=== PATIENT | female | born 1945 | race Caucasian/White ===

== ENCOUNTER → 2016-08-08 | Outpatient (CLI) | payer MEDICARE, OTHER ==
[~2016-08-08] MED LIST: AMLODIPINE BESYL5 MG PO; AMOXICILLIN500 MG PO; AUGMENTIN 500 M1 TAB PO; BACTRIM; BACTRIM 400 MG-1 TAB PO; CARAFATE1 G1 PO; CARVEDILOL3.125 MG PO; CEFTRIAXONE1 GM IJ; CELLCEPT500 MG PO; CIPRO500 MG PO; CLINDAMYCIN300 MG PO; COZAAR50 M1 PO; COZAAR50 MG PO; DEXILANT60 M1 PO; DEXTROSE IV; DICYCLOMINE HCL20 MG PO; DICYCLOMINE10 MG PO; DICYCLOMINE20 MG PO; DOXYCYCLINE HY100 M5 PO; DOXYCYCLINE100 M3 PO; FLORASTOR; FLORASTOR 33 MG1 CAP PO; FLOVENT 220 M220 MCG INH; FLOVENT INHALER; FLUTICASON0.05 MG/AC NAS; FOLIC ACID; FOLIC ACID1 MG PO; Flovent 220 M220 MCG INH; IMDUR SA30 MG PO; KCL; KEFLEX500 MG PO; LACTULOSE10 GM/15 M PO; LISINOPRIL10 MG PO; LISINOPRIL5 MG PO; MAG; MAGIMIN80 MG; METOCLOPRAMIDE H5 M1 PO; METOPROLOL SUCC25 M2 PO; NEURONTIN100 MG PO; NITROSTAT0.4 MG SL; NS; NS 0.9% IV; OMNICEF250 MG/5 M PO; OXYCONTIN20 MG PO; PANTOPRAZOLE SO40 MG PO; PHENERGAN25 M1 PO; POTASSIUM25 MEQ; PROAIR HFA8.5 GM INH; PROBIOTIC FORMU1 CAP PO; PROGRAF; PROGRAF1 MG PO; PROTONIX20 MG PO; PROTONIX40 MG PO; ROXICODONE5 MG PO; SEPTRA DS 800 M1 TAB PO; SODIUM CHLORIDE IV; THE MEDICINE S400 IU PO; VITAMIN D32000 IU PO; Wellbutrin Sr100 MG PO; ZOFRAN ODT4 MG SL
== END | disposition home or self-care (01) ==
LOC: MRI 08-01 11:00
DX: I67.82 Cerebral ischemia (principal); M79.631 Pain in right forearm; R41.3 Other amnesia; H53.8 Other visual disturbances; Z91.81 History of falling

== ENCOUNTER 2016-08-11 20:02 | Emergency (ER) | payer MEDICARE, OTHER ==
[~2016-08-11] VITALS: Ht 165.1 cm; Wt 90.7 kg
[2016-08-11] MEDS ORDERED: AMOXICILLIN250 MG PO (20:27)
[2016-08-11] MEDS ORDERED: COLCRYS0.6 M1 PO (22:10)
[2016-08-11] MEDS ORDERED: ULTRAM50 MG PO (22:44)
== END 2016-08-11 22:47 | disposition home or self-care (01) ==
LOC: ED 20:02
DX: M10.9 Gout, unspecified (principal); E11.9 Type 2 diabetes mellitus without complications; N18.4 Chronic kidney disease, stage 4 (severe); Z88.1 Allergy status to other antibiotic agents; Z79.899 Other long term (current) drug therapy

== ENCOUNTER 2016-11-27 06:15 | Inpatient (IN) | payer MEDICARE, OTHER ==
[~2016-11-27] VITALS: Ht 162.5 cm; Wt 90.7 kg
[2016-11-27] VITALS (8 sets, daily range): BP systolic 106–142; BP diastolic 53–71
--- NOTE | ~2016-11-27 | PR ---
[place], [place] PROGRESS NOTE NAME: CLAUDE MCCANN UNIT #: [id number] ROOM: 403 DOCTOR: NOEL AVILES MD BIRTHDATE: [birth year] DOS: SUBJECTIVE: The patient is doing well. She does not have any complaints today. The tooth that was loose has fallen off and she has a lot of drainage from the abscess. OBJECTIVE: VITAL SIGNS: Graphic trend shows blood pressure 136/59, pulse is 67, respirations 18, temperature 98.5. LUNGS: Clear. HEART: Regular. ABDOMEN: Obese, soft and nontender. EXTREMITIES: Without any edema. LABORATORY DATA: Blood cultures drawn on the 9 at 7:23 shows gram-negative bacilli. The one drawn at 7:31 shows no bacterial growth. Urine culture shows a contaminated specimen, which will need to be repeated. ASSESSMENT AND PLAN: 1. Fever with elevated white cell count and sepsis with gram-negative bacilli in the blood. The source of infection could still be the MediPort versus urinary tract infection. Again, a repeat urine culture will be ordered. The patient states that no culture was drawn from her MediPort, which will be done this morning. We will discontinue the continuous IV hydration that she is having. ____ was ordered by ID, which is continued. 2. Chronic kidney disease with GFR of 12, stage 5 renal failure. Renal is following the patient. Avoid nephrotoxic medications. 3. Benign hypertension, controlled. 4. History of liver transplant, on immunosuppressants, levels to be ordered. 5. Dental abscess. Dr. Mcneill did see the patient, advised the patient to see her dentist as an outpatient. The patient will need to stay until we figure out where the infection is coming from, so the patient to stay until the repeat cultures come back. [place], [place] PROGRESS NOTE NAME: CLAUDE MCCANN UNIT #: [id number] ROOM: 403 DOCTOR: NOEL AVILES MD BIRTHDATE: [birth year] NOEL AVILES MD CM:PNTRANS [id number] NOEL AVILES MD 11/29/16 1118 interface
--- NOTE | ~2016-11-27 | WRIGHTHP ---
[place], [place] PATIENT HISTORY AND PHYSICAL EXAM NAME: CLAUDE MCCANN [facility] #: [id number] UNIT #: [id number] ROOM: 403 DOCTOR: NOEL AVILES MD BIRTHDATE: [birth year] DOS: 11/27/2016 HISTORY OF PRESENT ILLNESS: The patient is very well known to us. She had blood work done routine on the . White cell count was normal. She came in to the hospital this morning as she started having fever and chills yesterday evening. She also complained of extreme weakness, but denied having any abdominal pain, nausea, any emesis, any urinary or bowel symptoms. She has had infected left upper molar and was supposed to have them removed soon. She does complain of some discomfort in that area. PAST MEDICAL HISTORY: Significant for: 1. Chronic kidney disease stage IV. 2. History of liver transplant. 3. Benign hypertension. 4. History of line sepsis. 5. Diabetes mellitus, non-insulin dependent. 6. Chronic back pain. MEDICATIONS: She is currently on DuoNeb, ProAir, saline once every other day, amlodipine 5 daily, Wellbutrin 100 mg twice a day, vitamin D 2000 units daily, folic acid 1 mg daily, metoprolol 25 mg daily, oxycodone 5 mg p.o. q.i.d., Protonix 40 mg twice a day, Prograf 1 mg twice a day, ____ Sunday, Sunday and Sunday 1 tablet. SOCIAL HISTORY: Nonsmoker, does not use any alcohol. PHYSICAL EXAMINATION: GENERAL: She is awake and alert and oriented. VITAL SIGNS: Graphic trend shows blood pressure of 142/70, pulse of 86, respirations 14, afebrile, temperature of 103 at home before she came in, here in the hospital the T-max is 102.0. LUNGS: Diminished breath sounds, clear. HEART: Regular. ABDOMEN: Obese, soft, nontender. EXTREMITIES: Without any edema. HEENT: Examination of the tooth reveals that the left upper molar is barely attached and she has some minimal tenderness in the ____ with evidence of early dental abscess. LABORATORY DATA: White cell count is 19,000, hemoglobin 10.0, hematocrit 33.8, platelets 234. Protime is normal. Sodium 135, potassium 4.0, chloride 100, bicarbonate 25, BUN 32, creatinine 3.39. ASSESSMENT AND PLAN: 1. Fever with elevated white cell count, possibly sepsis. Blood cultures and urine cultures have been sent. IV Rocephin started. Infectious Disease consultation has been obtained. 2. Chronic renal failure. IV fluids will be ordered and readjust medications. Dr. Rivera has been consulted. 3. Infected tooth with a possibility of dental abscess. Dr. Mcneill has [place], [place] PATIENT HISTORY AND PHYSICAL EXAM NAME: CLAUDE MCCANN UNIT #: [id number] ROOM: 403 DOCTOR: NOEL AVILES MD BIRTHDATE: [birth year] been consulted. 4. Elevated troponin. The patient does not have any complaints of chest pains or shortness of breath. She had cardiac workup at [facility] 2 weeks ago which was negative and this most likely is renal in origin. NOEL AVILES MD CM:HISPHYS:PATIENT HISTORY AND PHYSICAL EXAMINATION [id number] NOEL AVILES MD 11/27/16 1638 interface
--- NOTE | ~2016-11-27 | PR ---
[place], [place] PROGRESS NOTE NAME: CLAUDE MCCANN UNIT #: [id number] ROOM: 403 DOCTOR: NOEL AVILES MD BIRTHDATE: [birth year] DOS: SUBJECTIVE: The patient has a lot of URI symptoms, but otherwise feels good. OBJECTIVE: VITAL SIGNS: Graphic trend shows a pressure of 134/67, pulse is 65, respirations 18 and temperature 97.9. LUNGS: Clear. HEART: Regular. ABDOMEN: Obese, soft. EXTREMITIES: Without any edema. LABORATORY DATA: Blood cultures done on the 10. Both were peripheral venous cultures, they show no bacterial growth. Blood culture from the MediPort is still pending. ASSESSMENT AND PLAN: 1. Sepsis with elevated white cell count and positive blood cultures of pseudomonas. This could have originated from the urine. Urine culture initially showed contaminated specimen, which was repeated on the , which showed no bacterial growth. By then, the patient had already received multiple days of antibiotics. 2. Line sepsis is still being ruled out. MediPort cultures are pending. If that comes back negative, we will discharge her to home. If it is positive, then need to consider a MediPort removal and Dr. Vega was already placed on consult. 3. Acute kidney disease. Routine labs were done this morning shows a BUN of 29, creatinine 2.92, which has some slight improvement. 4. Upper respiratory infection symptoms. Claritin will be ordered today. NOEL AVILES MD CM:PNTRANS [phone] NOEL AVILES MD 11/30/162101 interface
--- NOTE | ~2016-11-27 | CON ---
[place], [place] REPORT OF CONSULTATION NAME: CLAUDE MCCANN UNIT #: [id number] ROOM: 403 DOCTOR: DOMINGO KUMAR DMD BIRTHDATE: [birth year] DOS: This is a consultation for dental evaluation. The patient was admitted for an elevated white count and fever following a fall. The patient states she is currently in end-stage renal failure with an elevated white count and fever of unknown origin. On exam, there is no extraoral swelling noted, normal range of motion, no dyspnea nor dysphagia. Intraoral exam shows extensive dry mouth with maxillary and mandibular partial edentulism, mucositis. The patient currently has a maxillary Cu-Mariluz partial denture over splinted implants, #13 and #14. 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 Buccal space abscess in noted. The mandibular dentition is in disrepair, but no active swelling or infection was noted. The patient was scheduled with Dr. Gore on November 29 for a full mouth extraction; however, the appointment was canceled due to her current hospitalization. Given the location and infected status of implants #13 and #14, it is possible that this is the source of her current distress. I recommend control with IV antibiotic therapy and immediate referral to Dr. Gore for completion of treatment. DOMINGO KUMAR DMD CM:CONSTR:REPORT OF CONSULTATION 1916 11/28/16 0524 interface
--- NOTE | ~2016-11-27 | PR ---
[place], [place] PROGRESS NOTE NAME: CLAUDE MCCANN UNIT #: [id number] ROOM: 403 DOCTOR: NOEL AVILES MD BIRTHDATE: [birth year] DOS: SUBJECTIVE: The patient has not had any new complaints. Denies any chest pains, palpitations or shortness of breath. PHYSICAL EXAMINATION: VITAL SIGNS: Blood pressure is 157/72, pulse is 62, respirations 18 and temperature 98.5. LUNGS: Diminished breath sounds. Clear. HEART: Regular. ABDOMEN: Obese, soft, nontender. EXTREMITIES: Without any edema. LABORATORY DATA: FK506 level was 1.5. Urine culture shows no bacterial growth. [facility], which is preliminary. ASSESSMENT AND PLAN: 1. Sepsis, possibly from UTI and some Pseudomonas. The patient is placed on IV cefepime and she is being discharged to home today. IV antibiotic arrangements have been made by case management. 2. Chronic kidney disease. She will continue to receive IV fluids at home. 3. Benign hypertension, controlled. 4. History of liver transplant, the FK506 level is slightly on the low side. I will let the transplant clinic to readjust the med dose. NOEL AVILES MD CM:PNTRANS [phone] NOEL AVILES MD 12/01/162124 interface
--- NOTE | ~2016-11-27 | DS ---
[place], [place] DISCHARGE SUMMARY NAME: CLAUDE MCCANN UNIT #: [id number] ROOM: 403 DOCTOR: NOEL AVILES MD BIRTHDATE: [birth year] DOS: 12/01/2016 DIAGNOSES: 1. Sepsis with pseudomonas bacteremia. 2. The source of infection, most likely urinary. MediPort cultures negative, so line sepsis ruled out. 3. Chronic kidney disease. 4. History of liver transplant. 5. Benign hypertension. 6. Chronic back pain. 7. Diabetes mellitus, non-insulin dependent. MEDICATIONS: She is on are the same. Only new prescription given was IV cefepime 1 g b.i.d. for 14 days. HOSPITAL COURSE: The patient is very well known to us, comes in with complaints of fever, chills and extreme weakness. The patient's white cell count was normal initially, as she was tachypneic and slightly tachycardic and diagnosed with sepsis and was admitted. After admission, blood cultures and urine cultures were performed. The patient was placed on IV Rocephin. Consultation with ID, Nephrology and Cardiology were obtained. Troponin levels have been elevated. This is most likely renal problems that she has had. No further recommendations made by Cardiology, Dr. Rivera from Nephrology did see the patient, advised continuation of her home medications and IV fluids. ID did re-adjust her antibiotic regimen. The urine culture has come back negative. It shows a contaminated specimen, so repeat culture was sent and this has come back showing no bacterial growth. Blood culture grew Pseudomonas only in 1 bottle. MediPort cultures were negative, so the plan is to continue giving the patient IV antibiotics through the MediPort for about 14 days. The patient is overall stable and is not having any new problems at the time of discharge. The Prograf level is slightly on the low side Transplant Clinic adjusts her medicines. [place], [place] DISCHARGE SUMMARY NAME: CLAUDE MCCANN UNIT #: [id number] ROOM: 403 DOCTOR: NOEL AVILES MD BIRTHDATE: [birth year] NOEL AVILES MD CM:DISCHARG [id number] NOEL AVILES MD 12/01/16 1357 interface
--- NOTE | ~2016-11-27 | PR ---
[place], [place] PROGRESS NOTE NAME: CLAUDE MCCANN UNIT #: [id number] ROOM: 403 DOCTOR: NOEL AVILES MD BIRTHDATE: [birth year] DOS: SUBJECTIVE: The patient is not having any new complaints. I appreciate all consultants' input. OBJECTIVE: VITAL SIGNS: Graphic trend shows blood pressure 120/57, pulse of 59, respirations 20, temperature 98.3, T-max was yesterday afternoon at 101.1. LUNGS: Diminished breath sounds. HEART: Regular. ABDOMEN: Obese. EXTREMITIES: Without any edema. MediPort site looks intact. ASSESSMENT AND PLAN: 1. Sepsis with gram-negative bacilli, most likely not line sepsis, most likely urinary tract infection with bacteremia, do not have the urine culture back yet. The patient will continue on IV Zosyn. 2. Dental abscess, appreciate Dr. Mcneill's input. The patient was encouraged to see her dentist as an outpatient. 3. Elevated troponin, most likely renal, most likely from underlying kidney failure. The patient does not have any evidence of myocardial infarction and a recent cardiac workup was normal. 4. Chronic kidney disease. The patient is on slow IV hydration. Renal is following. We will have case manager specialist to arrange for home IV antibiotics. Not ready to be discharged yet. NOEL AVILES MD CM:PNTRANS [id number] NOEL AVILES MD 11/28/16 1120 interface
[~2016-11-27 06:15] MED LIST changes: +AMOXICILLIN250 MG PO; +COLCRYS0.6 M1 PO; +ULTRAM50 MG PO
[2016-11-27 07:11] LABS: HEMATOCRIT 33.8 % (37.0-47.0); HEMOGLOBIN 10.8 g/dl (12.0-16.0); MEAN CELL VOLUME 91.1 fl (81.0-99.0); MEAN CORPUSCULAR HGB 29.1 pg (27.0-31.0); MEAN PLATELET VOLUME 10.8 fl (9.6-12.3); PLATELET COUNT AUTOMATED 234 10*3/uL (130-400); RED BLOOD COUNT 3.71 10*6/uL (4.10-5.10); RED CELL DISTRI WIDTH 14.9 % (0-14.5)
[2016-11-27 07:17] LABS: INTERNATIONAL NORM RATIO 1.1 (2.0-3.5)
[2016-11-27 07:28] LABS: ALBUMIN 3.2 gm/dl (3.1-4.5); CREATININE 3.39 mg/dL (0.55-1.02); MAGNESIUM 1.9 mg/dL (1.5-2.1); TOTAL PROTEIN 7.1 gm/dL (6.4-8.2)
[2016-11-27 07:30] LABS: TROPONIN I 0.875 ng/ml (<0.045)
[2016-11-27 07:31] LABS: PLATELET SUFFICIENCY NORMAL (NORMAL); TOTAL CELLS COUNTED 100 #CELLS
[2016-11-27 08:09] LABS: BILIRUBIN NEGATIVE (NEGATIVE); BLOOD 2+ (NEGATIVE); CLARITY SL CLOUDY (CLEAR); COLOR YELLOW (YELLOW); GLUCOSE NEGATIVE (NEGATIVE); KETONE NEGATIVE (NEGATIVE); LEUKO ESTERASE TRACE (NEGATIVE); NITRITE NEGATIVE (NEGATIVE); SPECIFIC GRAVITY 1.015 (1.005-1.030)
[2016-11-27 08:19] LABS: BACTERIA TRACE; EPITHELIAL CELLS 16-20; WBC 16-20 wbc/hpf (0-5)
--- NOTE | 2016-11-27 09:59 | NUR ---
A 71, admitted to , under the services of NOEL Browning MD with a diagnosis of UTI. Chief complaint is UTI, FEVER, WEAKNESS, FALLS. Patient arrived via stretcher from ER. Monitor applied. Initial assessment completed. Vital signs taken and recorded. NOEL BROWNING MD notified of admission to the unit. Orders received. See assessment for past medical history, medications and allergies. Patient and/or family oriented to unit. [address] visitation policy reviewed. Clothing/patient valuable form completed. NATALIO STROUD
--- NOTE | 2016-11-27 10:42 | NUR ---
CONSULT CALLED TO DR JONES'S OFFICE
[2016-11-27] MEDS ORDERED: FLONASE ALLERG9.9 ML NAS (11:02)
[2016-11-27] MEDS ORDERED: COLCRYS0.6 M1 PO (11:04)
[2016-11-27] MEDS ORDERED: NITROGLYCERIN0.4 MG SL (11:06)
--- NOTE | 2016-11-27 11:07 | NUR ---
Critical troponin received from lab of 0.911 and primary care nurse Dora Cantu notified of result.
[2016-11-27] MEDS ORDERED: SEPTDS PO (11:08)
--- NOTE | 2016-11-27 11:11 | NUR ---
PATIENT MEDICATED WITH PO TYLENOL FOR FEVER OF 102
--- NOTE | 2016-11-27 11:21 | NUR ---
CONSULT CALLED TO SARAHI AT [facility]
--- NOTE | 2016-11-27 12:10 | NUR ---
PATIENT TYLENOL EFFECTIVE FOR FEVER
--- NOTE | 2016-11-27 14:01 | NUR ---
PHYSICAL THERAPY Patient evaluated on 4, full evaluation to follow. Continue with PT as per plan of care with fall, acutely ill and new 02 precautions. May require SNF, pemding progress. If home, may require home health Rn and PT and assist. PAtient is moderate complexity via chart review, tests and evaluation: 27562. Thank you for this referral. Michela Gonzáles,PT
--- NOTE | 2016-11-27 14:04 | NUR ---
PATIENT MEDICATED WITH PO ZOFRAN FOR VOMITING
--- NOTE | 2016-11-27 14:33 | NUR ---
Occupational Therapy evaluation completed on 4 with full eval to follow. Precautions include fall risk,new O2, IV UE,low complexity level 76749. Recomemnd OT per POC and home w/ family as able with possible home health OT/PT as indicated. Thank you for this referral. Sarai Louis OTR/l
--- NOTE | 2016-11-27 14:47 | NUR ---
NOTIFIED DR AVILES ABOUT ELEVATED TROPONIN
--- NOTE | 2016-11-27 16:14 | NUR ---
CONSULT CALLED TO DR MCCALLUM'S OFFICE. WAS TOLD DR GUERRERO WAS COVERING. ALSO CALLED DR KUMAR'S OFFICE. SHANE ADVISED SHE WOULD GIVE THE MESSAGE TO DR KUMAR.
--- NOTE | 2016-11-27 17:42 | NUR ---
NOTIFIED FROM LAB THAT PATIENT HAS AN ELEVATED TROPONIN. THE LEVEL IS COMING DOWN. DR AVILES ADVISED WITH THE LAST LEVEL THAT SHE IS NOT CONCERNED FOR IT BEING CARDIAC RELATED THAT SHE BELIEVES IT IS FROM THE CKD THAT IF IT DOES NOT GO UP ANY HIGHER THAT I DO NOT NEED TO CALL AGAIN.
--- NOTE | 2016-11-27 19:30 | NUR ---
ASSUMED CARE OF PT AT THIS TIME, RESPS EASY AND NONLABORED WITH NO S/S OF DISTRESS, CALL LIGHT WITH IN REACH, VISITING WITH VISITOR
[2016-11-28] VITALS: BP 121/57
--- NOTE | 2016-11-28 04:33 | NUR ---
CALL PLACED TO R/T POSITIVE BLOOD CULTURES, NEW ORDERS TO START LEVAQUIN QOD, PT HAS ALLERGY TO LEVAQUIN, CALL PLACED TO DR AVILES AND MESSAGE LEFT R/T ALLERGY
[2016-11-28 05:57] LABS: BASO % 0.3 % (0.0-1.0); CREATININE 3.64 mg/dL (0.55-1.02); EOS # 0.1 10*3/uL (0.0-0.4); EOS % 0.8 % (1.0-4.0); HEMATOCRIT 29.2 % (37.0-47.0); HEMOGLOBIN 9.4 g/dl (12.0-16.0); LYMPH # 1.2 10*3/uL (1.3-4.4); LYMPH % 13.4 % (27.0-41.0); MEAN CELL VOLUME 91.8 fl (81.0-99.0); MEAN CORPUSCULAR HGB 29.6 pg (27.0-31.0); MEAN CORPUSCULAR HGB CONC 32.2 g/dl (33.0-37.0); MEAN PLATELET VOLUME 11.4 fl (9.6-12.3); MONO # 0.5 10*3/uL (0.1-1.0); MONO % 5.8 % (3.0-9.0); NEUT # 6.9 10*3/uL (2.3-7.9); NEUT % 79.2 % (47.0-73.0); POTASSIUM 4.1 mmol/L (3.5-5.1); RED BLOOD COUNT 3.18 10*6/uL (4.10-5.10); RED CELL DISTRI WIDTH 15.4 % (0-14.5); WHITE BLOOD COUNT 8.7 10*3/uL (4.8-10.8)
[2016-11-28 05:59] LABS: PLATELET COUNT AUTOMATED 148 10*3/uL (130-400)
--- NOTE | 2016-11-28 06:23 | NUR ---
AWAITING RETURN CALL FROM DR AVILES AT THIS TIME
--- NOTE | 2016-11-28 07:30 | NUR ---
PATIENT RESTING IN BED NO CO AT THIS TIME SEE SHIFT ASSESSMENT
[2016-11-28 08:00] VITALS: BP 144/86
--- NOTE | 2016-11-28 08:00 | NUR ---
Director Of Events in to talk to patient. Patient states lives at HOME with HER . There are 22 steps in the home. Physician: DR AVILES Pharmacy: [facility] IN [place] FOR IV MEDS Home health services: [facility] Patient's level of ADLs: MINIMAL ASSIST Patient has working utilities: YES DME: NONE Follow-up physician's appointment after d/c: PREFERS TO MAKE HER OWN APPT Does patient want to access PORTAL?: Discharge plan HOME WITH IV ATB. RITO TENA
--- NOTE | 2016-11-28 08:00 | NUR ---
PER DR AVILES, PT WILL NEED HOME IV ATB. WILL ARRANGE WHEN CULTURE SENSITIVITY IS BACK.
--- NOTE | 2016-11-28 09:03 | NUR ---
PHYSICAL THERAPY Patient presented to therapy with report of having a little back pain today but otherwise feeling much better. Patient is on 2 liters of spO2. Patient performed ther ex as per flowsheet with NITROCELLULOSE OPERATOR X 1 with O2 tank and IV pole, for 100'x1. Patient was left in seated position with call light within reach. Patient was 1:1 with this QA TEST ANALYST for 20 minutes. Khoi Bailey QA TEST ANALYST
--- NOTE | 2016-11-28 09:28 | NUR ---
PATIENT RESTING IN BED CALL LIGHT IN REACH SEE SHIFT ASSESSMNE
--- NOTE | 2016-11-28 11:02 | NUR ---
PATIENT RESTING IN BED HAS NO CO AT THIS TIME CALL LIGHT IN REACH SEE SHIFT ASSESSMENT
[2016-11-28 12:00] VITALS: BP 142/84; BP 143/75
--- NOTE | 2016-11-28 12:33 | NUR ---
PATIENT SEEN 1:1 15 MINUTES THIS DATE.PATIENT REPORTS HAVING A HEADACHE TODAY AND DECLINED STANDING ACTIVITY. PATIENT REPORTS NURSING AWARE. PATIENT WILLING TO COMPLETED BUE AROM STR IN SUPINE ALL PLANES 2 SETS X 10 REPS WITH MOD VERBAL CUES TECH/FORM. PATIENT EDUCATED IMPORTANCE OF THERAPY FOR OVERALL INCREASE INDEPENDENCE WITH FUNCTIONAL TASKS. PATIENT CALL LIGHT WITHIN IN REACH. MESSI WILLIS/Caitlin
[2016-11-28 16:00] VITALS: BP 134/53; BP 140/72
[2016-11-28 17:25] LABS: BILIRUBIN NEGATIVE (NEGATIVE); BLOOD NEGATIVE (NEGATIVE); CLARITY CLEAR (CLEAR); COLOR YELLOW (YELLOW); GLUCOSE NEGATIVE (NEGATIVE); KETONE NEGATIVE (NEGATIVE); LEUKO ESTERASE TRACE (NEGATIVE); NITRITE NEGATIVE (NEGATIVE); PH 7.5 (5.0-9.0); UROBILINOGEN 0.2 E.U./dl (0.2-1.0)
[2016-11-28 17:42] LABS: BACTERIA 4+
--- NOTE | 2016-11-28 19:30 | NUR ---
ASSUMED CARE OF PT AT THIS TIME, RESPS EASY AND NONLABORED WITH NO S/S OF DISTRESS CALL LIGHT WITH IN REACH
[2016-11-28 20:00] VITALS: BP 133/58
[2016-11-29] VITALS: BP 136/59
--- NOTE | 2016-11-29 01:49 | NUR ---
RESTING IN BED WITH EYES CLOSED, NO S/S OF DISTRESS CALL LIGHT WITH IN REACH
--- NOTE | 2016-11-29 06:00 | NUR ---
BEFORE ADMINSTERING THIS NURSES FIRST DOSE OF IV ANTIBIOTIC MEROPENUM, THIS NURSE CHECKED THE IV COMPATABILTY REPORT WITH LACTATED RINGERS AND IS FOUND TO BE INCOMPATABLE WITH MEROPENUM. CALL PLACED TO [facility] FOR VERIFICATION, AND WAS TOLD BY [facility] THAT MEROPENUM AND LACTATED RINGERS ARE INCOMPATABLE. INSTRUCTED PT THAT A NEW IV LINE WOULD NEED TO BE STARTED R/T INCOMPATABILITY OF MEDICATIONS AND PT REFUSED AT THIS TIME, STATING THAT SHE IS A HARD STICK AND WOULD LIKE TO SPEAK TO DR. AVILES ABOUT USING MEDIPORT BEFORE ATTEMPTING ANOTHER IV SITE.
[2016-11-29 08:00] VITALS: BP 155/39
--- NOTE | 2016-11-29 08:02 | NUR ---
PT SITTING UP EATING BREAKFAST. NO DISTRESS NOTED. NO VOICED C/O. DR AVILES IN TO SEE PT. WILL MONITOR
--- NOTE | 2016-11-29 08:18 | NUR ---
OCCUPATIONAL THERAPY CO-SIGN I approve of the Occupational Therapy notes written above. JAMMIE FERNÁNDEZ OTR/Caitlin
--- NOTE | 2016-11-29 08:49 | NUR ---
DR AVILES NOTIFIED OF BLOOD CULTURES
--- NOTE | 2016-11-29 10:03 | NUR ---
PT SHAKING IN BED, CHILING. STATES SHES NAUSEATED AND NEEDS TYLENOL . DR AVILES CALLED AND NOTIFIED . NEW ORDERS RECIEVED
--- NOTE | 2016-11-29 10:34 | NUR ---
PT REQUESTED AND GIVEN TYLENOL FOR C/O. ACHES, CHILLING / WILL MONITOR
--- NOTE | 2016-11-29 11:12 | NUR ---
PHYSICAL THERAPY Pt was not feeling good today. Pt having spasms in low back. Pt was able to complete some gentle rom with legs x 10 reps on each. Pt attempted to lay down supine with head down and reports that does not relieve pain. pt then sit-std sbax1. Pt ambulated to door 10 feet x 1 sbax1 just wanted to stand as that felt better. Pt nurse came in at this point to address issues with pain. Pt left with nurse in reach of call light sitting on the edge of the bed. Pt was seen for 20 minutes this date. Pt will cont per plan of care. Leonela Navarrete [id number]
[2016-11-29 12:00] VITALS: BP 110/71
--- NOTE | 2016-11-29 13:00 | NUR ---
IV started right forearm with #24 angiocath after 1 attempts. The IV site was prepped with Chloraprep. Heparin lock attached. Sterile dressing applied. Patient tolerated precedure well. Procedure performed according to [facility] policy & procedure. JULIAN MEAD
[2016-11-29 13:45] LABS: CREATININE 3.27 mg/dL (0.55-1.02); PHOSPHOROUS 2.3 mg/dL (2.5-4.9)
[2016-11-29 13:46] LABS: ALBUMIN 2.6 gm/dl (3.1-4.5)
[2016-11-29 16:00] VITALS: BP 130/70
[2016-11-29 20:00] VITALS: BP 137/61
--- NOTE | 2016-11-29 22:23 | NUR ---
PT REQUESTED MEDICATOIN FOR POST NASAL DRIP. CALLED. SEE MAR.
--- NOTE | 2016-11-29 23:38 | NUR ---
PT REQUESTED MEDICATION FOR NASAL DRIP. BENADRYL WAS GIVEN.
[2016-11-30] VITALS: BP 152/68
--- NOTE | 2016-11-30 00:15 | NUR ---
MEDICATION WAS EFFECTIVE. PT SLEEPING.
--- NOTE | 2016-11-30 01:12 | NUR ---
24 HR chart check completed.
[2016-11-30 07:49] LABS: BASO % 0.2 % (0.0-1.0); EOS # 0.3 10*3/uL (0.0-0.4); EOS % 4.2 % (1.0-4.0); HEMATOCRIT 26.8 % (37.0-47.0); HEMOGLOBIN 8.5 g/dl (12.0-16.0); LYMPH # 1.5 10*3/uL (1.3-4.4); LYMPH % 24.9 % (27.0-41.0); MEAN CELL VOLUME 91.5 fl (81.0-99.0); MEAN CORPUSCULAR HGB CONC 31.7 g/dl (33.0-37.0); MEAN PLATELET VOLUME 12.1 fl (9.6-12.3); MONO # 0.7 10*3/uL (0.1-1.0); MONO % 11.5 % (3.0-9.0); NEUT # 3.6 10*3/uL (2.3-7.9); NEUT % 58.5 % (47.0-73.0); PLATELET COUNT AUTOMATED 147 10*3/uL (130-400); RED BLOOD COUNT 2.93 10*6/uL (4.10-5.10); RED CELL DISTRI WIDTH 15.6 % (0-14.5); WHITE BLOOD COUNT 6.2 10*3/uL (4.8-10.8)
[2016-11-30 08:00] VITALS: BP 145/64
[2016-11-30 08:08] LABS: ALBUMIN 2.6 gm/dl (3.1-4.5); CREATININE 2.92 mg/dL (0.55-1.02); POTASSIUM 4.2 mmol/L (3.5-5.1); TOTAL PROTEIN 6.3 gm/dL (6.4-8.2)
--- NOTE | 2016-11-30 08:20 | NUR ---
PHYSICAL THERAPY Patient presented to therapy with report of feeling sick but hoping to go home soon. Patient agrees to therapy this AM. Patient performed supine to sitting at EOB transfer with Supervision. Patient performed sit to stand transfer with with Supervision. Patient ambulated without assistive device and Supervision for 120'x 1. Patient performed ther ex to LEs in seated position x 20 reps each in all planes of mvmt. Patient became sick and had to stop therapy due to stomach issues. Patient transferred back to bed Independently and was left with call light within reach. Nursing notified. Patient was 1:1 with this ENVIRONMENTAL ENGINEERING ASSISTANT for 25 minutes total. Khoi Bailey ENVIRONMENTAL ENGINEERING ASSISTANT
--- NOTE | 2016-11-30 08:35 | NUR ---
PT RESTING IN BED, NO DISTRESS NOTED. WILL MONITOR
--- NOTE | 2016-11-30 10:14 | NUR ---
Occupational THerapy treatment offered this date. Patient reports that she is nauseated and having diarrhea and is not interested in therapy at this date. OT will attempt at a later date. Sarai Louis OTR/L
[2016-11-30 12:00] VITALS: BP 134/67
[2016-11-30 16:00] VITALS: BP 144/63
--- NOTE | 2016-11-30 17:23 | NUR ---
PT RESTING IN BED, NO DISTRESS NOTED, WILL MONITOR
--- NOTE | 2016-11-30 19:52 | NUR ---
Medicated with Benadryl po prn for post nasal drip. Will monitor effectiveness. Call light within reach.
[2016-11-30 20:00] VITALS: BP 138/61
--- NOTE | 2016-11-30 21:00 | NUR ---
Patient resting quietly in bed with eyes closed. Benadryl effective. Will continue to monitor. Call light within reach.
[2016-12-01] VITALS: BP 163/87
--- NOTE | 2016-12-01 00:42 | NUR ---
24 HR chart check completed.
--- NOTE | 2016-12-01 07:50 | NUR ---
DR AVILES HERE TO SEE PT AT THIS TIME TO DISCUSS DISCHARGE PLANS.
[2016-12-01 08:00] VITALS: BP 157/72
--- NOTE | 2016-12-01 09:21 | NUR ---
PT TO GO HOME TODAY ON IV CEFEPIME 1GM IV BID X14 DAYS. SPOKE TO ELIZA AT [facility] [place] SCRIPT AND PAPERWORK FAXED. AWARE OF DC TODAY AND MED TO START AT HOME AT 6PM TONIGHT. DR AVILES ALSO ORDERED TO REUME HYDRATION PRIOR TO HOSPITALIZATION. JOAN AT [facility] SAYS THEY CAN BE THERE AT 6PM TONIGHT. PAPERWORK AND ORDER FAXED TO [facility]. PT AND NURSE AWARE PT CAN GO HOME THIS AM AND HOME TEAM WILL BE THERE AROUND 6PM TONIGHT. [facility] [phone] FAX [phone]
--- NOTE | 2016-12-01 11:50 | NUR ---
Discharge instructions reviewed with patient/family. Patient receptive and verbalizes understanding. Follow-up care arranged. Written instructions given to patient/family. Pt transported to [facility] via wheelchair, accomapnied by staff. NATALIO RING
--- NOTE | 2016-12-04 07:48 | NUR ---
PHYSICAL THERAPY CO-SIGN I approve of the Phyical Therapy notes written above. LORAINE HUDDLESTON PT
== END 2016-12-01 11:50 | disposition home health service (06) | DRG 871 ==
LOC: ED 06:15 → 4E 08:54 → EDHOLD 08:54 → 4E 09:00
PROVIDERS: Emergency Medicine Emergency Medical Services; Family Medicine; Student in an Organized Health Care Education/Training Program; ADMIT Internal Medicine
DX: A41.52 Sepsis due to Pseudomonas (principal); N17.0 Acute kidney failure with tubular necrosis; S26.90XA Unspecified injury of heart, unspecified with or without hemopericardium, initial encounter; N18.6 End stage renal disease; N39.0 Urinary tract infection, site not specified; Z94.4 Liver transplant status; I12.0 Hypertensive chronic kidney disease with stage 5 chronic kidney disease or end stage renal disease; E11.22 Type 2 diabetes mellitus with diabetic chronic kidney disease; J06.9 Acute upper respiratory infection, unspecified; E83.39 Other disorders of phosphorus metabolism; E83.42 Hypomagnesemia; D64.9 Anemia, unspecified; M54.9 Dorsalgia, unspecified; K12.30 Oral mucositis (ulcerative), unspecified; K08.409 Partial loss of teeth, unspecified cause, unspecified class; G89.29 Other chronic pain; K74.60 Unspecified cirrhosis of liver; E86.9 Volume depletion, unspecified; K04.7 Periapical abscess without sinus; R31.9 Hematuria, unspecified; M10.9 Gout, unspecified; Z90.49 Acquired absence of other specified parts of digestive tract; Z87.440 Personal history of urinary (tract) infections; Z88.1 Allergy status to other antibiotic agents; Z83.3 Family history of diabetes mellitus; Z82.49 Family history of ischemic heart disease and other diseases of the circulatory system; Z80.9 Family history of malignant neoplasm, unspecified; Z79.899 Other long term (current) drug therapy; W18.39XA Other fall on same level, initial encounter; Y93.89 Activity, other specified; Y92.89 Other specified places as the place of occurrence of the external cause; Y99.8 Other external cause status

== ENCOUNTER → 2016-12-27 | Outpatient (CLI) | payer MEDICARE, OTHER ==
[~2016-12-27] MED LIST changes: +FLONASE ALLERG9.9 ML NAS; +NITROGLYCERIN0.4 MG SL; +SEPTDS PO
--- NOTE | 2016-12-27 14:35 | NUR ---
PT HERE FOR BLOOD CULTURE DRAW FORM [facility]. PT CAME WITH MEDIPORT ACCESSED FORM HOME. PROMPT BLOOD RETURN. LAB HERE WITH CULTURE TUBES. BLOOD SPECIMEN GIVEN TO COOK RESTAURANT. [facility] FLUSHED PER POLICY. PT TOLERATED WELL. BIJAL MONTAGUE RN
== END ==
LOC: LAB 13:25
DX: N39.0 Urinary tract infection, site not specified (principal); E79.0 Hyperuricemia without signs of inflammatory arthritis and tophaceous disease; A41.59 Other Gram-negative sepsis

== ENCOUNTER 2017-05-06 16:46 | Emergency (ER) | payer MEDICARE, BC ==
[~2017-05-06] VITALS: Ht 165.1 cm; Wt 90.7 kg
[2017-05-06 17:23] LABS: BASO % 0.3 % (0.0-1.0); EOS # 0.2 10*3/uL (0.0-0.4); EOS % 2.4 % (1.0-4.0); HEMATOCRIT 31.2 % (37.0-47.0); HEMOGLOBIN 9.9 g/dl (12.0-16.0); LYMPH # 2.6 10*3/uL (1.3-4.4); LYMPH % 36.5 % (27.0-41.0); MEAN CORPUSCULAR HGB 29.8 pg (27.0-31.0); MEAN CORPUSCULAR HGB CONC 31.7 g/dl (33.0-37.0); MEAN PLATELET VOLUME 10.7 fl (9.6-12.3); MONO # 0.5 10*3/uL (0.1-1.0); MONO % 7.7 % (3.0-9.0); NEUT # 3.7 10*3/uL (2.3-7.9); PLATELET COUNT AUTOMATED 284 10*3/uL (130-400); RED BLOOD COUNT 3.32 10*6/uL (4.10-5.10); RED CELL DISTRI WIDTH 14.4 % (0-14.5)
[2017-05-06 17:32] LABS: ACT PARTIAL THROMBO TIME 34.1 SECONDS (20.8-31.5)
[2017-05-06 17:39] LABS: ALBUMIN 3.2 gm/dl (3.1-4.5); ALKALINE PHOSPHATASE 227 U/L (45-117); BUN 33 mg/dl (7-24); CHLORIDE 99 mmol/L (98-107); CREATININE 3.64 mg/dL (0.55-1.02); PHOSPHOROUS 3.8 mg/dL (2.5-4.9); SGOT/AST 25 IU/L (3-35); SGPT/ALT 23 U/L (12-78); SODIUM 137 mmol/L (136-145); TOTAL PROTEIN 6.7 gm/dL (6.4-8.2)
[2017-05-06 17:46] LABS: TROPONIN I < 0.015 ng/ml (<0.045)
[2017-05-06 18:02] LABS: BILIRUBIN NEGATIVE (NEGATIVE); BLOOD NEGATIVE (NEGATIVE); CLARITY CLEAR (CLEAR); COLOR YELLOW (YELLOW); GLUCOSE NEGATIVE (NEGATIVE); KETONE NEGATIVE (NEGATIVE); LEUKO ESTERASE NEGATIVE (NEGATIVE); NITRITE NEGATIVE (NEGATIVE); PH 8.5 (5.0-9.0); UROBILINOGEN 0.2 E.U./dl (0.2-1.0)
[2017-05-06 18:14] LABS: EPITHELIAL CELLS 0-2; RBC 0-2 rbc/hpf (0-2); WBC 0-2 wbc/hpf (0-5)
[2017-05-06] MEDS ORDERED: ZOFRAN ODT4 MG SL (18:48)
== END 2017-05-06 18:53 | disposition home or self-care (01) ==
LOC: ED 16:46
PROVIDERS: Emergency Medicine
DX: R19.7 Diarrhea, unspecified (principal); R53.1 Weakness; R10.32 Left lower quadrant pain; E11.22 Type 2 diabetes mellitus with diabetic chronic kidney disease; N18.4 Chronic kidney disease, stage 4 (severe); M10.9 Gout, unspecified; J45.909 Unspecified asthma, uncomplicated; Z94.4 Liver transplant status; Z88.1 Allergy status to other antibiotic agents; Z79.899 Other long term (current) drug therapy

== ENCOUNTER 2017-06-27 09:30 | Inpatient (IN) | payer MEDICARE, BC ==
[~2017-06-27] VITALS: Ht 160 cm; Wt 91.0 kg
--- NOTE | ~2017-06-27 | WRIGHTHP ---
[place], [place] PATIENT HISTORY AND PHYSICAL EXAM NAME: CLAUDE MCCANN [facility] #: [id number] UNIT #: [id number] ROOM: 532 DOCTOR: LENORE MAYA MD BIRTHDATE: [birth year] DOS: 06/27/2017 HISTORY OF PRESENT ILLNESS: A 72-year-old patient with a past medical history of: 1. Major depression, recurrent. 2. Liver transplant in 2004. 3. Ileojejunal bypass for weight loss in with reversal in 2005. 4. History of kidney stones. 5. Ventral abdominal hernia, wears a binder. 6. Breast cancer with mastectomy and chemotherapy more than 5 years back. 7. Chronic diarrhea with colitis. The patient presented to the emergency department at [facility] for diarrhea for about 10 days and she was unable to get her diarrhea medications through her insurance. The patient felt very weak and dizzy and was evaluated in the emergency department where she also complained of chest pains. There were some complaints of shortness of breath. There were complaints of burning in her urine. The patient thought she got dehydrated because of her diarrhea. The patient was evaluated in the emergency department, following this cardiac enzymes have been checked and negative so far. The patient is starting to feel better. REVIEW OF SYSTEMS: LUNGS: Some shortness of breath. GASTROINTESTINAL: Diarrhea for 10 days. She also has history of chronic diarrhea. CARDIOVASCULAR: Recurrent chest pains. FAMILY HISTORY: Noncontributory. SOCIAL HISTORY: Denies smoking cigarettes, alcohol and drug abuse. PHYSICAL EXAMINATION: GENERAL: Alert, oriented times 3. Generalized weakness. HEENT AND NECK: Extraocular movements are intact. Sclerae are anicteric. Oral mucosa is moist and clean. No obvious facial weakness. Neck is supple without any lymphadenopathy. No thyromegaly. No JVD. No carotid arterial bruits. LUNGS: Clear to auscultation. No wheezing. No rhonchi. CARDIOVASCULAR SYSTEM: Heart rate is regular in rate and rhythm. S1 and S2 normally audible. No significant murmur or any other abnormal cardiac sounds. ABDOMEN: Soft, nontender. No obvious organomegaly. Bowel sounds are present. The patient has ventral abdominal hernia and abdominal binder. EXTREMITIES: Without significant cyanosis or edema. Warm to touch. CENTRAL NERVOUS SYSTEM: Alert and oriented x 3. Cranial nerves II-XII are intact. Speech is normal. The patient is able to move all extremities. Normal muscle strength. Deep tendon reflexes are equal on both sides. Plantars were downgoing. LABORATORY DATA: Negative cardiac enzymes so far. D-dimer is elevated at 1.12. VQ scan results are pending. Hemoglobin 8.8. Creatinine elevated to 3.2. [place], [place] PATIENT HISTORY [facility]YS[id number] UN[facility] #: [id number] ROOM: [facility] DOCTOR: LENORE MAYA MD BIRTHDATE: [birth year] IMPRESSION: 1. The patient has history of chronic kidney disease with elevated creatinine and persistent diarrhea for 10 days. I will hydrate her slowly with normal saline and follow her serum electrolytes. 2. Chest pains. Cardiology consulted. The patient on a quality assurance monitor chassis. Cardiac enzymes have been negative. 3. Acute over chronic diarrhea, improved. The patient being hydrated with normal saline. 4. The patient has history of liver failure and liver transplant, continued on her antirejection medication. She takes tacrolimus which is Prograf. 5. Benign essential hypertension. The patient on amlodipine. Blood pressures are treated and controlled. 6. Diabetes mellitus type 2. Blood sugars to be monitored and treated. The patient to be kept on no concentrated sweet diet 7. Chronic kidney disease stage 4. 8. The patient is being ruled out for pulmonary embolism with a VQ scan. Her kidneys cannot tolerate iodine dye load. LENORE MAYA MD CM:HISPHYS:PATIENT HISTORY AND PHYSICAL EXAMINATION [id number] LENORE MAYA MD 06/28/17 1541 interface
--- NOTE | ~2017-06-27 | PR ---
[place], [place] PROGRESS NOTE NAME: CLAUDE MCCANN [facility] #: [id number] UNIT #: [id number] ROOM: 532 DOCTOR: LENORE MAYA MD BIRTHDATE: [birth year] DOS: 06/29/2017 SUBJECTIVE: The patient is improving. OBJECTIVE: VITAL SIGNS: Blood pressure 140/68, heart rate of 56 beats per minute, breathing normally, afebrile. GENERAL APPEARANCE: The patient is alert and oriented x 3, in no visible distress, except for generalized weakness. HEENT AND NECK: Exam within normal limits. CARDIOVASCULAR SYSTEM: Heart rate is regular in rate and rhythm. S1 and S2 normally audible. LUNGS: Clear to auscultation. ABDOMEN: Soft, nontender. No obvious organomegaly. Bowel sounds are present. EXTREMITIES: Without significant cyanosis or edema. IMPRESSION: 1. The patient with chronic kidney disease stage 4 with acute over chronic kidney failure from dehydration and diarrhea, starting to improve with hydration with normal saline. The patient's diarrhea has improved and kidney function is also improving. Her creatinine has improved to 3.15, but she is still not at her baseline, so I will continue the hydration. 2. No signs of pulmonary embolism. V/Q scan was low probability and her cardiac enzymes were negative. The patient was evaluated by Cardiology and not recommended any further workup. 3. Chronic diarrhea from bariatric surgery, which is chronic. 4. Type 2 diabetes mellitus. Blood sugars are well controlled. 5. Benign essential hypertension, treated with amlodipine. Blood pressure is being monitored and treated and staying slightly on the higher side. LENORE MAYA MD CM:PNTRANS 08 [phone] LENORE MAYA MD 06/29/172158 interface
--- NOTE | ~2017-06-27 | PR ---
[place], [place] PROGRESS NOTE NAME: CLAUDE MCCANN [facility] #: [id number] UNIT #: [id number] ROOM: 532 DOCTOR: NOEL AVILES MD BIRTHDATE: [birth year] DOS: 06/30/2017 SUBJECTIVE: The patient is feeling good. Her diarrhea has almost completely resolved. OBJECTIVE: VITAL SIGNS: Graphic trend shows a pressure 154/78, pulse of 55, respirations 18, temperature 98.3. LUNGS: Clear. HEART: Regular. ABDOMEN: Obese, soft, nontender. EXTREMITIES: Without any edema. ASSESSMENT AND PLAN: 1. The patient who presents with diarrhea, which is chronic with intermittent worsening. The patient was advised to try Asacol, but unfortunately the insurance would not approve it. She ended up in the hospital with diarrhea, which is uncontrollable. She was, after admission, placed on Lomotil and intravenous fluids and seems to have calmed it down. Her kidney functions are stable. The plan is to discharge her to home today. 2. Chronic renal failure, stage 4, stable without much change. She will continue intravenous fluids at home. NOEL AVILES MD CM:PNTRANS [phone] NOEL AVILES MD 06/30/17 0825 interface
--- NOTE | ~2017-06-27 | DS ---
[place], [place] DISCHARGE SUMMARY NAME: CLAUDE MCCANN [facility] #: [id number] UNIT #: [id number] ROOM: 532 DOCTOR: NOEL AVILES MD BIRTHDATE: [birth year] DOS: 06/30/2017 DIAGNOSES: 1. Chronic renal failure, stage V with interval worsening of kidney functions from acute renal failure, from continued diarrhea and volume loss. 2. Chronic diarrhea with interval worsening. 3. History of liver transplant. 4. History of diabetes mellitus. 5. History of chronic back pain. MEDICATIONS: That she is currently on are Asacol 800 t.i.d., Prograf 1 mg b.i.d., folic acid 1 mg daily, oxycodone 5 q.i.d. p.r.n., metoprolol 50 daily, IV fluids with D5 and water 2000 mL every other day, ProAir HFA 2 puffs q.i.d. p.r.n., Protonix 40 b.i.d., amlodipine 5 daily, lactulose 15 mL p.r.n. for constipation, Wellbutrin 100 mg twice a day, Flonase 2 sprays each nostril daily, nitroglycerin p.r.n., Zofran 4 mg p.r.n., Advair 100 one puff twice a day, allopurinol 100 daily. HOSPITAL COURSE: The patient is 72 years old, very well known to us, comes in with complaints of diarrhea. She has had chronic diarrhea, but it has worsened recently. Unfortunately, a prescription of Asacol given as an outpatient was not able to be felt because insurance refused. Because of uncontrolled diarrhea, the patient finally decided to come into the Emergency Room. She did have some minimal worsening of her kidney functions. The patient was placed on IV fluids, Lomotil. Please refer to Dr. Springer's dictation for further details. The patient apparently did have some shortness of breath and chest pain. A cardiac evaluation was also obtained. Dr. Jaime did not feel this was cardiac in nature. A V/Q scan was done, which was negative. This morning, the patient is feeling good and is not having any complaints. The plan is to discharge her to home today. Follow up as an outpatient. [place], [place] DISCHARGE SUMMARY NAME: CLAUDE MCCANN UNIT #: [id number] ROOM: [facility] DOCTOR: NOEL AVILES MD BIRTHDATE: [birth year] NOEL AVILES MD CM:DANA [phone] NOEL AVILES MD 06/30/17 0845 interface
[2017-06-27 09:30] VITALS: BP 170/65
[2017-06-27 09:51] LABS: BASO % 0.3 % (0.0-1.0); EOS # 0.2 10*3/uL (0.0-0.4); EOS % 2.3 % (1.0-4.0); HEMATOCRIT 27.7 % (37.0-47.0); HEMOGLOBIN 8.8 g/dl (12.0-16.0); LYMPH # 2.1 10*3/uL (1.3-4.4); LYMPH % 26.7 % (27.0-41.0); MEAN CELL VOLUME 92.6 fl (81.0-99.0); MEAN CORPUSCULAR HGB 29.4 pg (27.0-31.0); MEAN CORPUSCULAR HGB CONC 31.8 g/dl (33.0-37.0); MEAN PLATELET VOLUME 10.9 fl (9.6-12.3); MONO # 0.6 10*3/uL (0.1-1.0); MONO % 7.4 % (3.0-9.0); NEUT # 4.9 10*3/uL (2.3-7.9); NEUT % 62.9 % (47.0-73.0); PLATELET COUNT AUTOMATED 233 10*3/uL (130-400); RED BLOOD COUNT 2.99 10*6/uL (4.10-5.10); RED CELL DISTRI WIDTH 14.1 % (0-14.5); WHITE BLOOD COUNT 7.8 10*3/uL (4.8-10.8)
[2017-06-27 10:00] LABS: ACT PARTIAL THROMBO TIME 29.3 SECONDS (20.8-31.5)
[2017-06-27 10:09] LABS: ALBUMIN 3.1 gm/dl (3.1-4.5); ALKALINE PHOSPHATASE 228 U/L (45-117); BUN 24 mg/dl (7-24); CHLORIDE 104 mmol/L (98-107); CREATININE 3.14 mg/dL (0.55-1.02); POTASSIUM 3.7 mmol/L (3.5-5.1); SGOT/AST 27 IU/L (3-35); SGPT/ALT 26 U/L (12-78); SODIUM 140 mmol/L (136-145); TOTAL PROTEIN 6.9 gm/dL (6.4-8.2)
[2017-06-27 10:11] LABS: TROPONIN I < 0.015 ng/ml (<0.045)
[2017-06-27 10:26] LABS: BILIRUBIN NEGATIVE (NEGATIVE); BLOOD TRACE-INTACT (NEGATIVE); CLARITY CLEAR (CLEAR); COLOR YELLOW (YELLOW); GLUCOSE NEGATIVE (NEGATIVE); KETONE NEGATIVE (NEGATIVE); LEUKO ESTERASE NEGATIVE (NEGATIVE); NITRITE NEGATIVE (NEGATIVE); SPECIFIC GRAVITY <= 1.005 (1.005-1.030); UROBILINOGEN 0.2 E.U./dl (0.2-1.0)
[2017-06-27 10:34] LABS: EPITHELIAL CELLS 0-2
[2017-06-27 10:59] VITALS: BP 170/65
[2017-06-27 12:00] VITALS: BP 160/88
[2017-06-27 16:00] VITALS: BP 167/74
[2017-06-27 20:00] VITALS: BP 150/78
[2017-06-28] VITALS: BP 151/67
[2017-06-28 08:00] VITALS: BP 174/76
[2017-06-28 12:00] VITALS: BP 155/54
[2017-06-28 16:00] VITALS: BP 157/66
[2017-06-28 20:00] VITALS: BP 148/63
[2017-06-29] VITALS: BP 152/57
[2017-06-29 06:19] LABS: BASO % 0.3 % (0.0-1.0); EOS # 0.5 10*3/uL (0.0-0.4); EOS % 5.5 % (1.0-4.0); HEMATOCRIT 28.1 % (37.0-47.0); HEMOGLOBIN 8.7 g/dl (12.0-16.0); LYMPH # 3.5 10*3/uL (1.3-4.4); LYMPH % 37.2 % (27.0-41.0); MEAN CELL VOLUME 94.9 fl (81.0-99.0); MEAN CORPUSCULAR HGB 29.4 pg (27.0-31.0); MEAN PLATELET VOLUME 11.3 fl (9.6-12.3); MONO # 0.6 10*3/uL (0.1-1.0); MONO % 6.4 % (3.0-9.0); NEUT # 4.7 10*3/uL (2.3-7.9); NEUT % 50.3 % (47.0-73.0); PLATELET COUNT AUTOMATED 269 10*3/uL (130-400); RED BLOOD COUNT 2.96 10*6/uL (4.10-5.10); RED CELL DISTRI WIDTH 14.3 % (0-14.5); WHITE BLOOD COUNT 9.3 10*3/uL (4.8-10.8)
[2017-06-29 06:51] LABS: CREATININE 3.15 mg/dL (0.55-1.02); POTASSIUM 4.1 mmol/L (3.5-5.1)
[2017-06-29 09:25] VITALS: BP 140/68
[2017-06-29 12:00] VITALS: BP 158/76
[2017-06-29 16:00] VITALS: BP 166/75
[2017-06-29] MEDS ORDERED: ADV 100/50 INH (16:58)
[2017-06-29] MEDS ORDERED: ALLOPURINOL100 MG PO (16:58)
[2017-06-29 20:00] VITALS: BP 160/90
[2017-06-30] VITALS: BP 154/78
[2017-06-30] MEDS ORDERED: ASACOL HD800 M1 PO (06:42)
[2017-06-30 07:40] LABS: CREATININE 3.3 mg/dL (0.55-1.02); POTASSIUM 4.5 mmol/L (3.5-5.1)
[2017-06-30 08:00] VITALS: BP 155/72
== END 2017-06-30 09:40 | disposition home or self-care (01) | DRG 683 ==
LOC: ED 09:30 → 5E 10:36 → EDHOLD 10:36 → 5E 11:15
PROVIDERS: Emergency Medicine; Internal Medicine
DX: N17.9 Acute kidney failure, unspecified (principal); I12.0 Hypertensive chronic kidney disease with stage 5 chronic kidney disease or end stage renal disease; D89.9 Disorder involving the immune mechanism, unspecified; E11.22 Type 2 diabetes mellitus with diabetic chronic kidney disease; Z94.4 Liver transplant status; F33.9 Major depressive disorder, recurrent, unspecified; D63.8 Anemia in other chronic diseases classified elsewhere; M94.0 Chondrocostal junction syndrome [Tietze]; N18.5 Chronic kidney disease, stage 5; E86.0 Dehydration; K52.9 Noninfective gastroenteritis and colitis, unspecified; M10.9 Gout, unspecified; K74.60 Unspecified cirrhosis of liver; Z88.1 Allergy status to other antibiotic agents; Z88.8 Allergy status to other drugs, medicaments and biological substances; Z79.899 Other long term (current) drug therapy; Z87.440 Personal history of urinary (tract) infections; Z90.49 Acquired absence of other specified parts of digestive tract; Z90.12 Acquired absence of left breast and nipple; Z83.3 Family history of diabetes mellitus; Z82.49 Family history of ischemic heart disease and other diseases of the circulatory system; Z80.9 Family history of malignant neoplasm, unspecified; Z87.442 Personal history of urinary calculi; Z85.3 Personal history of malignant neoplasm of breast

== ENCOUNTER 2017-08-10 05:09 | Inpatient (IN) | payer MEDICARE, BC ==
[2017-08-10] VITALS (9 sets, daily range): BP systolic 121–169; BP diastolic 52–99
[~2017-08-10] VITALS: Ht 165.1 cm; Wt 91.7 kg
--- NOTE | ~2017-08-10 | PR ---
[place], [place] PROGRESS NOTE NAME: CLAUDE MCCANN UNIT #: [id number] ROOM: 521 DOCTOR: KASSIDY SCOTT,DONNA BIRTHDATE: [birth year] DOS: 08/11/2017 I had a fhss-[id number] encounter for this patient and agree with the assessment plan made by Yuki Riojas, nurse practitioner and made the necessary changes in the progress note. Tarah Yi MD CM:PNTRANS [phone] DONNA YI MD 09/04/17 0152 interface
--- NOTE | ~2017-08-10 | PR ---
[place], [place] PROGRESS NOTE NAME: CLAUDE MCCANN [facility] #: [id number] UNIT #: [id number] ROOM: 521 DOCTOR: NOEL AVILES MD BIRTHDATE: [birth year] DOS: 08/12/2017 SUBJECTIVE: The patient complains of burning on micturition, does not have any fever or chills. PHYSICAL EXAMINATION: GENERAL: She is awake and alert and oriented. VITAL SIGNS: Blood pressure is 150/53, pulse of 65, respirations 18, temperature 97.8. LUNGS: Diminished breath sounds. No wheezes, rales or rhonchi heard. HEART: Regular. ABDOMEN: Obese, soft, nontender. EXTREMITIES: Without any edema. ASSESSMENT AND PLAN: 1. Urine culture shows 25,000 colonies, most likely not responsible for the dysuria, most likely from renal atrophy. We will add Premarin cream for local application. 2. Sepsis with bacteremia, on IV antibiotics. Patient is awaiting repeat blood cultures, may require MediPort removal after completion of antibiotics if the blood cultures continued to be positive. NOEL AVILES MD CM:PNTRANS [phone] NOEL AVILES MD 08/24/17 0923 interface
--- NOTE | ~2017-08-10 | PR ---
[place], [place] PROGRESS NOTE [facility] [id number] UNIT #: [id number] ROOM: 521 DOCTOR: KT LLAMAS MD BIRTHDATE: [birth year] DOS: 08/11/2017 SUBJECTIVE: The patient was seen and examined. She is awake and alert. She is sitting in bed on room air. She denies shortness of breath, nausea or vomiting. Her appetite is fair. She states she is feeling a little bit better. PHYSICAL EXAMINATION: VITAL SIGNS: Showed temperature 98.2, pulse 61, respiration 18 and blood pressure 117/57. HEENT: Shows no JVD. LUNGS: Clear. No wheeze. HEART: S1, S2. No rub. ABDOMEN: Soft, nontender. There is no organomegaly. EXTREMITIES: Showed no edema. SKIN: Showed no rash. LABORATORY DATA: Hemoglobin 8.4, white count of 4.8, platelets of 170. BUN 35, creatinine 4.0, sodium 141, potassium 4.0, CO2 28, phosphorus 4.1, magnesium 1.9. CT scan of the abdomen and pelvis without contrast showed mild constipation. Otherwise, no acute findings were noted. Blood cultures were growing gram-negative rods as well as gram-positive cocci bacillus. ASSESSMENT AND PLAN: 1. Stage 4-5 chronic kidney disease. The patient has had fluctuating creatinine levels and perhaps has a slight acute kidney injury on chronic kidney disease related to prerenal factors. Her baseline creatinine seems to run in the 3s with fluctuations. Her creatinine is fairly stable. Her electrolytes are acceptable. Fluids for now. Watch volume status carefully. Currently, there is no need for dialysis. 2. Sepsis with bacteremia. The patient is on antibiotics, being followed by Infectious Disease. Dose meds for current creatinine clearance. She does have a port in place and this should likely be removed. We would defer to ID for their input. 3. Anemia. Follow hemoglobin and hematocrit. We can consider erythropoietin stimulating agents at some point. 4. Status post orthotopic liver transplant. The patient is on immunosuppression. [place], [place] PROGRESS NOTE NAME: CLAUDE MCCANN UNIT #: [id number] ROOM: 521 DOCTOR: KT LLAMAS MD BIRTHDATE: [birth year] KT LLAMAS MD CM:PNTRANS [phone] KT LLAMAS MD 08/12/17 0334 interface
--- NOTE | ~2017-08-10 | PR ---
[place], [place] PROGRESS NOTE NAME: CLAUDE MCCANN [facility] #: [id number] UNIT #: [id number] ROOM: 521 DOCTOR: LENORE MAYA MD BIRTHDATE: [birth year] DOS: 08/14/2017 SUBJECTIVE: The patient says he is feeling somewhat stronger and better after blood transfusion. OBJECTIVE: VITAL SIGNS: Blood pressure 108/49, heart rate of 105 beats per minute, breathing 18 times per minute, temperature 98.3 degrees Fahrenheit. GENERAL APPEARANCE: The patient is alert and oriented x 3, in no visible distress. HEENT AND NECK: Exam within normal limits. CARDIOVASCULAR SYSTEM: Heart rate is regular in rate and rhythm. S1 and S2 normally audible. LUNGS: Clear to auscultation. ABDOMEN: Soft, nontender. No obvious organomegaly. Bowel sounds are present. Morbid obesity. EXTREMITIES: Without significant cyanosis or edema. IMPRESSION: 1. Acute gastrointestinal bleed and blood loss anemia with hemoglobin stable at 9.2 now. The patient is status post EGD and colonoscopy without any source of active bleeding. Dr. Macias, the pets salesperson is following him. 2. Iron deficiency anemia, to be replaced with supplements and he is getting IV iron infusions now. 3. Folic acid deficiency, treated with supplements. 4. Morbid obesity. The patient working with dietary. 5. Adult failure to thrive. 6. When patient's hemoglobin becomes stable, he can be discharged to home. LENORE MAYA MD CM:PNTRANS [phone] LENORE MAYA MD 08/15/17 1643 interface
--- NOTE | ~2017-08-10 | PR ---
[place], [place] PROGRESS NOTE NAME: CLAUDE MCCANN [facility] #: [id number] UNIT #: [id number] ROOM: 521 DOCTOR: SARITA SAEZMAY BIRTHDATE: [birth year] DOS: 08/12/2017 SUBJECTIVE: The patient is a 72-year-old female who is being followed for Gram-negative racheal septicemia. Cultures have grown Enterobacter from the blood. Her urine culture has ESBL E. coli, only 25,000 colonies. She did have a CT of the abdomen and pelvis that only demonstrated constipation. No intraabdominal acute process. Her fevers have resolved. She has been receiving Zosyn, alert and oriented, states she is feeling better. She is having some right upper quad abdominal discomfort where she has a large hernia, which she states she has on and off. She also has chronic back pain. No nausea or vomiting. No diarrhea. No rash or itch. No fevers or shaking chills, is well resolved. OBJECTIVE: VITAL SIGNS: Show temperature 97.7, pulse 63, respirations 20, BP 153/71. LABORATORY DATA: Show WBCs 5.6, platelets 220. BUN 33, creatinine 4.1. Cultures as reviewed above. PHYSICAL EXAMINATION: GENERAL: A 72-year-old obese female in no acute distress, nontoxic in appearance. HEENT: Normocephalic, no thrush. LUNGS: Clear to auscultation bilaterally. Respirations even and unlabored. HEART: Regular rhythm. No murmur appreciated. Right chest MediPort is accessed, unremarkable on exam. ABDOMEN: Soft, obese, nontender. EXTREMITIES: No edema, deformity or cyanosis. Left breast mastectomy noted. SKIN: Warm, dry, free of rashes. ASSESSMENT: Enterobacter bacteremia with significant concern for MediPort infection, given that though she states she had urinary symptoms at the time of admission, urine culture only had 25,000 colonies of Escherichia coli. PLAN: At this point, we will change the Zosyn to ertapenem, which will be renally dosed at 500 mg daily or meropenem, whichever is available through pharmacy. Followup on the repeat blood cultures that were obtained yesterday. ANALIA STEIN CNP [place], [place] PROGRESS NOTE NAME: CLAUDE MCCANN [facility] UNIT #: [id number] ROOM: 521 DOCTOR: SARITA SAEZMAY BIRTHDATE: [birth year] Tarah Kelley MD CM:JUAN [phone] ANALIA STEIN CNP 08/20/17 0826 interface
--- NOTE | ~2017-08-10 | PR ---
[place], [place] PROGRESS NOTE NAME: CLAUDE MCCANN [facility] #: [id number] UNIT #: [id number] ROOM: 521 DOCTOR: LENORE MAYA MD BIRTHDATE: [birth year] DOS: 08/14/2017 SUBJECTIVE: The patient had her MediPort removed yesterday. OBJECTIVE: VITAL SIGNS: Blood pressure 163/83, heart rate of 74 beats per minute, breathing 18 times per minute, temperature 99.5 degrees Fahrenheit. GENERAL APPEARANCE: The patient is alert and oriented x 3, in no visible distress. Generalized weakness. HEENT AND NECK: Exam within normal limits. CARDIOVASCULAR SYSTEM: Heart rate is regular in rate and rhythm. S1 and S2 normally audible. LUNGS: Clear to auscultation. ABDOMEN: Soft, nontender. No obvious organomegaly. Bowel sounds are present. EXTREMITIES: Without significant cyanosis or edema. IMPRESSION: 1. The patient with urinary tract infection. 2. Type 2 diabetes mellitus. Blood sugars being monitored and treated. 3. Sepsis and leukocytosis, fever apparently from MediPort infection, which has been removed. 4. Mild protein-calorie malnutrition. The patient working with dietary. 5. Generalized weakness and adult failure to thrive. The patient working with physical therapy. 6. History of liver transplant. The patient on Prograf. Patient on meropenem and to be continued for 2 weeks after MediPort removal, which was on the yesterday. LENORE MAYA MD CM:PNTRANS [phone] LENORE MAYA MD 08/15/17 1646 interface
--- NOTE | ~2017-08-10 | PR ---
[place], [place] PROGRESS NOTE NAME: CLAUDE MCCANN [facility] #: [id number] UNIT #: [id number] ROOM: 521 DOCTOR: NOEL AVILES MD BIRTHDATE: [birth year] DOS: 08/11/2017 SUBJECTIVE: The patient is very well known to us. She does not have any new complaints other than some headache. Denies any chest pains or palpitations. PHYSICAL EXAMINATION: GENERAL: She is awake and alert and oriented. VITAL SIGNS: Blood pressure is 121/60, pulse of 63, respirations 18, temperature 98.2. LUNGS: Clear. HEART: Regular. ABDOMEN: Obese, soft. EXTREMITIES: Without any edema. LABORATORY DATA: Urine culture shows 25,000 colonies of light gram negative bacteria. BMP this morning, glucose 94, BUN 35, creatinine 4, GFR 11. Electrolytes within normal limits. WBC count is 4.8, hemoglobin 8.4, hematocrit 27.2, platelets 170. CT of the abdomen and pelvis shows pancreatic atrophy, no hydronephrosis, renal atrophy, hemorrhagic cyst, no evidence of any pyelonephritis. Blood cultures show gram negative coccobacillus, again no identification is available. ASSESSMENT AND PLAN: 1. The patient presents with significant high-grade fever with sepsis with gram-negative bacilli in the blood, awaiting urine culture as well as blood cultures for identification of the bacteria as well as the sensitivities. Right now continue antibiotics. Question is whether the patient has a MediPort infection and whether this requires to be removed. 2. Sepsis ruled in with positive blood cultures. Lactic acid level was high. It has normalized. 3. End-stage renal failure. BUN and creatinine continue to be at the baseline. Continue close followup of the kidney functions with the current antibiotics that she is on. [place], [place] PROGRESS NOTE [facility] [id number] UNIT #: [id number] ROOM: 521 DOCTOR: NOEL AVILES MD BIRTHDATE: [birth year] NOEL AVILES MD CM:PNTRANS [phone] NOEL AVILES MD 08/24/17 0922 interface
--- NOTE | ~2017-08-10 | CON ---
[place], [place] REPORT OF CONSULTATION [id number] UNIT #: [id number] ROOM: 521 DOCTOR: VINOD JONES MD BIRTHDATE: [birth year] DOS: 08/10/2017 TIME OF SERVICE: 1450 p.m. This is a late entry, his Meditech was down for period of time. HISTORY OF PRESENT ILLNESS: The patient is a very pleasant 72-year-old woman well known to me for history of advanced chronic kidney disease stage 4, nearing stage 5. She has had a history of ileo-jejunal bypass resulting complications of cirrhosis, eventual takedown of her bypass. She has had a history of severe acute kidney injury, some without recovery. She has had chronic calcineurin inhibitor use, likely causing some toxicity and hypertensive nephrosclerosis. She has had subsequent liver transplant, given her short gut. She has had increased GI losses and has been getting nightly infusions of approximately 2 liters of fluid. Currently, she is receiving D5 with sodium acetate, magnesium, and calcium. She has also had just D5 with acetate and also normal saline, different concentrations for different labs. She has had some issues with urinary tract infections in the past. Currently, she came in with fevers and chills. She has been doing a lot, trying to get her well who was just recently diagnosed with cancer. He has been treated at [place]. She has been doing a lot of traveling lately and it is unclear how or why, but she did develop what looks to be fairly significant urosepsis with bacteremia with gram-negative rods. She is feeling better with antibiotics started. We are consulted for chronic kidney disease management while she is hospitalized. REVIEW OF SYSTEMS: All negative except for as per HPI. PAST MEDICAL HISTORY: As above as well as a history of diabetes, chronic electrolyte disorders, acidosis, GI losses, anemia, history of gout. Liver transplant status. She has allergies to LEVAQUIN, MOXIFLOXACIN, NITROFURANTOIN. FAMILY HISTORY: Negative. SOCIAL HISTORY: No toxic habits reported. She was living at home. She is . PHYSICAL EXAMINATION: VITAL SIGNS: Initially was febrile to 101.3, currently 99.7, pulse 60, respiratory rate 20, blood pressure 150/75. GENERAL: Awake and alert, oriented. No acute distress, sitting upright in bed. HEENT: Extraocular muscles intact. HEAD AND NECK: Sclerae are anicteric. Oropharynx clear. Mucous membranes moist. NECK: No JVD, no lymphadenopathy, no carotid bruit. LUNGS: Clear bilaterally without audible rales or wheeze. CARDIOVASCULAR: Regular rate. No rub. ABDOMEN: Soft, nontender, nondistended. No active chronic diarrhea present. SKIN: With no acute diffuse rashes or breakdowns. [place], [place] REPORT OF CONSULTATION NAME: CLAUDE MCCANN UNIT #: [id number] ROOM: 521 DOCTOR: VINOD JONES MD BIRTHDATE: [birth year] NEUROLOGIC: Gross motor function and sensation is intact. LABORATORIES AND DIAGNOSTICS: All reviewed in detail. White blood cell count 7.8, hemoglobin 8.6, platelets 228. Sodium 137, potassium 4.2, chloride 102, bicarbonate 24, BUN 40, creatinine 3.98, glucose 163. Lactic acid 1.4, down from 2.5. Calcium 7.9. LFTs, alkaline phosphatase 318, albumin 3, AST 52. Otherwise, negative. Urinalysis, 3+ protein, 1+ blood, some WBCs were noted. Cultures are pending. Blood cultures just came back with gram-negative rods. Abdominal pelvic CT was ordered, not yet done. ASSESSMENT AND PLAN: Chronic kidney disease stage 4, border stage V, estimated GFR is roughly 11. She has been slightly higher on 24-hour urine is in the past. Her labs have fluctuated with baselines mostly in the mid 3s, sometimes going up into the high 3s, low 4s. No acute indication for dialysis. We have been continuing her on IV nightly hydration therapy with labs weekly. She is not on any fluids right now, but given her fever and likely sepsis, she should have been continued on some since her initial boluses in the ER for sepsis protocol. I will start her on half normal with 75 mEq of sodium acetate given her history of acidosis chronically. We will do this at a low rate for now on a continuous basis and see how labs trend. Her volume and hypertension is otherwise acceptably controlled. Anemia is mild without any active bleeding noted. We will continue to follow labs. Lactic acidosis has improved with volume. Urinary tract infection with bacteremia and sepsis. Continue antibiotics. Agree with ID consultation given immunocompromised status, liver transplant on Prograf, elevated labs. Continue to follow trends. Monitor for stability. Check Prograf levels per primary or GI. Thank you very much, we will continue to follow with you. VINOD JONES MD CM:CONSTR:REPORT OF CONSULTATION 20 08/12/17 191 interface
--- NOTE | ~2017-08-10 | DS ---
[place], [place] DISCHARGE SUMMARY NAME: CLAUDE MCCANN [facility] #: [id number] UNIT #: [id number] ROOM: 521 DOCTOR: LENORE MAYA MD BIRTHDATE: [birth year] DOS: 08/15/2017 DISCHARGE DIAGNOSES: 1. Removal of infected MediPort. 2. Urinary tract infection with urine cultures growing Escherichia coli. 3. Sepsis with bacteremia growing Enterobacter amnigenus, apparently from MediPort. 4. Stage 4-5 chronic kidney failure. The patient followed by Nephrology. 5. History of liver transplant. The patient on Prograf. 6. Type 2 diabetes mellitus. 7. Chronic back pain. 8. Folic acid deficiency. 9. Benign essential hypertension. 10. Chronic obstructive pulmonary disease. 11. Chronic gouty arthritis. 12. Chronic constipation. 13. Gastroesophageal reflux disease and esophagitis. 14. The patient with chronic kidney failure, stage 4-5 chronic kidney disease is being followed by Nephrology. 15. Urinary tract infection with Escherichia coli sensitive to Cipro. The patient is being discharged to home on ciprofloxacin for 10 days. 16. Infected MediPort, which was removed by Dr. Vega and treated with antibiotics. The patient had signs of sepsis and bacteremia, which was treated. She is asymptomatic now. 17. Chronic gouty arthritis treated with allopurinol. 18. Benign essential hypertension, treated and controlled. 19. Chronic constipation, treated with lactulose as needed. 20. Gastroesophageal reflux disease and esophagitis, asymptomatic with Protonix. 21. History of liver transplant. The patient continued on Prograf. 22. Mild protein-calorie malnutrition. The patient worked with Dietary. The patient was considered immunocompromised. 23. Anemia of chronic disease with hemoglobin of 8.4, stable. LABORATORY DATA: Negative blood cultures. Urine creatinine 29 and 3.37. Normal serum electrolytes, otherwise hemoglobin of 8.4. No leukocytosis. Platelets were normal. DISCHARGE MANAGEMENT: Metoprolol 50 mg daily, amlodipine 10 mg a day, trazodone 50 mg at bedtime p.r.n. for sleep, loratadine 10 mg a day, mesalamine 800 mg 3 times a day, tacrolimus 1 mg b.i.d., bupropion slow release 100 mg b.i.d., allopurinol 100 mg a day, Protonix 40 mg b.i.d., lactulose 10 grams daily p.r.n. for constipation, ciprofloxacin 500 mg b.i.d. for 10 days, oxycodone 5 mg q.i.d. p.r.n. for pain. [place], [place] DISCHARGE SUMMARY NAME: CLAUDE MCCANN UNIT #: [id number] ROOM: 521 DOCTOR: LENORE MAYA MD BIRTHDATE: [birth year] LENORE MAYA MD CM:DISCHARG [id number] LENORE MAYA MD 08/15/17 0329 interface
--- NOTE | ~2017-08-10 | PR ---
[place], [place] PROGRESS NOTE NAME: CLAUDE MCCANN UNIT #: [id number] ROOM: 521 DOCTOR: DONNA YI MD BIRTHDATE: [birth year] DOS: 08/12/2017 I did the rsgc-of-pfei encounter and agree with the assessment and plan made by Yuki Riojas, nurse practitioner and made the necessary changes in the progress note. Tarah Yi MD CM:PNTRANS [id number] DONNA YI MD 09/04/17 0150 interface
--- NOTE | ~2017-08-10 | WRIGHTHP ---
[place], [place] PATIENT HISTORY AND PHYSICAL EXAM NAME: CLAUDE MCCANN [facility] #: [id number] UNIT #: [id number] ROOM: [facility] DOCTOR: LENORE MAYA MD BIRTHDATE: [birth year] DOS: 08/10/2017 HISTORY OF PRESENT ILLNESS: 1. The patient is a 72-year-old female with a past medical history of chronic kidney disease stage V. 2. History of liver transplant. The patient is on Prograf. 3. History of type 2 diabetes mellitus. 4. Chronic back pain. 5. Folic acid deficiency. 6. Benign essential hypertension. 7. COPD. 8. Chronic gouty arthritis. 9. Chronic constipation. 10. GERD and esophagitis. The patient presented to the Emergency Department with fever and shaking chills, severe burning on her urine, nausea and vomiting. The patient was already started on antibiotic for these symptoms yesterday, but she was still getting worse. I just figured out that she has history of liver cirrhosis. She is immunosuppressed. The patient was found to be in sepsis with high fever, shaking chills, elevation of creatinine kinase and lactic acid, suspected to have a urinary infection and recommended for admission and further management. REVIEW OF SYSTEMS: LUNGS: The patient with some complains of shortness of breath. GASTROINTESTINAL: Complains of nausea and vomiting. CARDIOVASCULAR: No chest pains or palpitations. SOCIAL HISTORY: Denies smoking cigarettes, alcohol and drug abuse. ALLERGIES: KNOWN ALLERGIES TO QUINOLONES AND MACROBID. FAMILY HISTORY: Noncontributory. HOME MEDICATIONS: Prograf, oxycodone, allopurinol, Wellbutrin, mesalamine and Protonix. PHYSICAL EXAMINATION: GENERAL: Alert, oriented, looking very weak and uncomfortable with shaking chills and very pale. Generalized weakness. HEENT AND NECK: Extraocular movements are intact. Sclerae are anicteric. Oral mucosa is moist and clean. No obvious facial weakness. Neck is supple without any lymphadenopathy. No thyromegaly. No JVD. No carotid arterial bruits. LUNGS: Clear to auscultation. No wheezing. No rhonchi. CARDIOVASCULAR SYSTEM: Heart rate is regular in rate and rhythm. S1 and S2 normally audible. No significant murmur or any other abnormal cardiac sounds. ABDOMEN: Soft, nontender. No obvious organomegaly. Bowel sounds are present. No obvious herniation. Multiple scars from previous surgery. EXTREMITIES: 1-2+ leg and pedal edema. CENTRAL NERVOUS SYSTEM: Alert and oriented x 3. Cranial nerves II-XII are [place], [place] PATIENT HISTORY AND PHYSICAL EXAM [facility] [id number] UNIT #: [id number] ROOM: [facility] DOCTOR: LENORE MAYA MD BIRTHDATE: [birth year] intact. Speech is normal. The patient is able to move all extremities. Normal muscle strength. Deep tendon reflexes are equal on both sides. Plantars were downgoing. LABORATORY DATA: BUN and creatinine 14 and 4, albumin level of 3 and hemoglobin 8.4. IMPRESSION AND PLAN: 1. The patient presenting with severe sepsis, shaking chills, rigors and fever of 101.3 and appears to be increasing. Nursing staff after repeat blood cultures once fever recheck above 102 degrees Fahrenheit. The patient is immunocompromised because of her chronic illness. Liver transplant and being on Prograf. The patient is being moved to the ICU for close monitoring and I am consulting Infectious Disease specialist to treat her with antibiotics. The patient was suspected to have a urinary tract infection because of burning in the urine. Lactic acid level was elevated to 2.5. The patient's blood pressure is on the lower side of normal and I am holding back her blood pressure medications. 2. Acute over chronic kidney failure. The patient is already on stage V kidney failure and her creatinine is further elevated because of sepsis. I am consulting Nephrology to follow her closely and manage her fluids. 3. Benign essential hypertension. Blood pressure is staying on the lower normal side. I am going to hold back her blood pressure medications because she is going into severe sepsis. 4. Relative leukopenia, apparently secondary to the patient's poor health, chronic disease and that she is immunocompromised. 5. History of liver transplant. The patient is on Prograf, which is being continued. 6. Chronic gouty arthritis treated with allopurinol. 7. Probable history of inflammatory bowel disease for which the patient is on mesalamine, which is being continued. 8. Major depression, recurrent, mild, treated with Wellbutrin, which is being continued. 9. Chronic constipation was treated with lactulose as needed. 10. Gastroesophageal reflux disease and esophagitis, treated with Protonix, which is being continued. 11. Generalized weakness and adult failure to thrive with suboptimal prognosis. 12. Mild protein calorie malnutrition. [place], [place] PATIENT HISTORY AND PHYSICAL EXAM [facility]: [facility] [id number] UNIT #: [id number] ROOM: [facility] DOCTOR: LENORE MAYA MD BIRTHDATE: [birth year] LENORE MAYA MD CM:HISPHYS:PATIENT HISTORY AND PHYSICAL EXAMINATION [id number] LENORE MAYA MD 08/10/17 1017 interface
--- NOTE | ~2017-08-10 | PR ---
[place], [place] PROGRESS NOTE NAME: CLAUDE MCCANN [facility] #: [id number] UNIT #: [id number] ROOM: 521 DOCTOR: SARITA SAEZ,MAY BIRTHDATE: [birth year] DOS: 08/11/2017 SUBJECTIVE: The patient is being followed for UTI. She had urinary frequency and dysuria as well as some back pain. She was admitted and had gram-negative rods with bacteremia. Urine culture also has gram-negative rods, 25,000 colonies. UA, however, did not have any pyuria. She does have a MediPort in place for 3 or 4 years. She remains on IV Zosyn, does have a history of an ESBL Klebsiella previously last year. She is alert and oriented, feeling better. No recent fevers or chills. Those have resolved. No nausea or vomiting, no diarrhea. No rash or itch. Back pain has improved. No pain or issues with the MediPort. LABORATORY DATA: WBCs 4.8, platelets 170. Cultures as reviewed above. BUN 35, creatinine 4.0. CURRENT MEDICATIONS: Include Zofran, Zosyn, Claritin, Asacol, Prograf, Wellbutrin, Zyloprim, Protonix, Roxicodone, Nitrostat and cephulac. PHYSICAL EXAMINATION: GENERAL: A 72-year-old female, in no acute distress. HEENT: Normocephalic, no thrush. LUNGS: Clear to auscultation bilaterally. Respirations even and unlabored. HEART: Regular rhythm. No murmur appreciated. ABDOMEN: Soft, nondistended, positive bowel sounds. EXTREMITIES: No edema, deformity or cyanosis. BREASTS: She does have a left mastectomy. SKIN: Warm, dry, free of rashes. Right chest MediPort is accessed. No irregularity at the site. ASSESSMENT: Gram-negative racheal bacteremia due to urinary tract infection. Her CT of the abdomen and pelvis did not demonstrate any acute changes. PLAN: Continue the Zosyn. Follow up on blood and urine cultures. Would recommend after she has completed treatment for the UTI and bacteremia, she have repeat blood cultures to verify that her MediPort is not infected. Her repeat blood culture was ordered yesterday per Dr. Kelley. Case discussed with Dr. Kelley. MAY NADJA STEIN [place], [place] PROGRESS NOTE NAME: CLAUDE MCCANN [facility] UNIT #: [id number] ROOM: [facility] DOCTOR: SARITA SAEZ,MAY BIRTHDATE: [birth year] Tarah Kelley MD CM:JUAN 30 15 SARITA SAEZ 08/20/17 0826 interface
--- NOTE | ~2017-08-10 | PR ---
[place], [place] PROGRESS NOTE NAME: CLAUDE MCCANN [facility] #: [id number] UNIT #: [id number] ROOM: 521 DOCTOR: NOEL AVILES MD BIRTHDATE: [birth year] DOS: 08/13/2017 SUBJECTIVE: The patient is not having any complaints today. OBJECTIVE: VITAL SIGNS: Graphic trend shows pressure 154/72, pulse of 64, respirations 20, temperature 98.1. LUNGS: Diminished breath sounds, clear. HEART: Regular. ABDOMEN: Obese, soft. EXTREMITIES: Without any edema. ASSESSMENT AND PLAN: 1. Urinary tract infection with 25,000 colonies, which is being treated with antibiotics. 2. Vulval atrophy, Premarin cream was added. 3. Sepsis with bacteremia. Blood cultures are showing growth of gram-negative bacilli, which is Enterobacter amnigenus, which is unrelated to the urinary tract infection that she has. This indicates that this likely is a MediPort infection. We will ask Dr. Vega for removal of MediPort. A PICC line will be placed because of continuous IV fluid infusion in the patient every day. 4. Chronic kidney disease stage 4-5. The patient will continue to receive IV fluids as an outpatient. She is going for an AV fistula placement when the blood cultures are cleared. NOEL AVILES MD CM:PNTRANS [id number] NOEL AVILES MD 08/14/17 0518 interface
--- NOTE | ~2017-08-10 | PROC NOTE ---
[place], [place] PROCEDURE NOTE NAME[id number] UNIT #: [id number] ROOM: 521 DOCTOR: KALPESH VEGA MD BIRTHDATE: [birth year] DOS: 08/13/2017 PREOPERATIVE DIAGNOSIS: Positive blood cultures, right anterior chest wall, MediPort. POSTOPERATIVE DIAGNOSIS: Positive blood cultures, right anterior chest wall, MediPort. PROCEDURE: Removal of right chest wall MediPort. SURGEON: Kalpesh Vega MD ASSEMBLER FLUORESCENT LIGHTS: ERUM. ANESTHESIA: MAC with local. INDICATIONS: This is a 72-year-old lady admitted with sepsis and positive blood cultures, a MediPort removal was requested. The procedure and its complications were explained to the patient in detail preoperatively. Complications that were discussed included but were not limited to bleeding, infection, prolonged pain, and damage to lying vital structures. She agreed to proceed. DESCRIPTION OF PROCEDURE: After identifying the patient, the patient was brought to the operating suite and laid in the supine position. After IV sedation was administered, a timeout procedure was called and the parts were then painted and draped in the usual sterile fashion. Approximately 12 mL of local anesthesia injected in the skin and the subcutaneous tissue surrounding the MediPort. Incision was made and deepened in layers. The MediPort was identified and then removed by cutting the stitch that was holding the MediPort and sending it for histopathological diagnosis. Hemostasis was achieved with the help of electrocautery. Thereafter, the subcutaneous tissue was approximated with the help of 3-0 Vicryl and the skin edges were approximated with the help of 4-0 Vicryl in a subcuticular running fashion. The dressing was placed with the help of skin glue and the patient was brought back to the recovery room in stable fashion. There were no complications. Dr. Kalpesh Vega, the attending surgeon, was present throughout the operating case. [place], [place] PROCEDURE NOTE NAME: CLAUDE MCCANN UNIT #: [id number] ROOM: 521 DOCTOR: KALPESH VEGA MD BIRTHDATE: [birth year] Kalpesh Vega MD CM:PROCNOTE:PROCEDURE NOTE [id number] KALPESH VEGA MD
[~2017-08-10 05:09] MED LIST changes: +ADV 100/50 INH; +ALLOPURINOL100 MG PO; +ASACOL HD800 M1 PO
[2017-08-10 05:42] LABS: BASO % 0.4 % (0.0-1.0); EOS # 0.2 10*3/uL (0.0-0.4); EOS % 2.3 % (1.0-4.0); HEMATOCRIT 27.9 % (37.0-47.0); HEMOGLOBIN 8.6 g/dl (12.0-16.0); LYMPH # 0.6 10*3/uL (1.3-4.4); LYMPH % 7.6 % (27.0-41.0); MEAN CELL VOLUME 94.3 fl (81.0-99.0); MEAN CORPUSCULAR HGB 29.1 pg (27.0-31.0); MEAN CORPUSCULAR HGB CONC 30.8 g/dl (33.0-37.0); MEAN PLATELET VOLUME 11.3 fl (9.6-12.3); MONO # 0.1 10*3/uL (0.1-1.0); MONO % 1.3 % (3.0-9.0); NEUT # 6.9 10*3/uL (2.3-7.9); NEUT % 87.8 % (47.0-73.0); PLATELET COUNT AUTOMATED 228 10*3/uL (130-400); RED BLOOD COUNT 2.96 10*6/uL (4.10-5.10); RED CELL DISTRI WIDTH 14.5 % (0-14.5); WHITE BLOOD COUNT 7.8 10*3/uL (4.8-10.8)
[2017-08-10 05:57] LABS: CREATININE 3.98 mg/dL (0.55-1.02); POTASSIUM 4.2 mmol/L (3.5-5.1); TOTAL PROTEIN 6.4 gm/dL (6.4-8.2)
[2017-08-10 06:11] LABS: BILIRUBIN NEGATIVE (NEGATIVE); BLOOD 1+ (NEGATIVE); CLARITY CLEAR (CLEAR); COLOR YELLOW (YELLOW); GLUCOSE NEGATIVE (NEGATIVE); KETONE NEGATIVE (NEGATIVE); LEUKO ESTERASE NEGATIVE (NEGATIVE); NITRITE NEGATIVE (NEGATIVE); UROBILINOGEN 0.2 E.U./dl (0.2-1.0)
[2017-08-10 06:33] LABS: BACTERIA 1+
[2017-08-11] VITALS: BP 143/69
[2017-08-11 04:00] VITALS: BP 156/77
[2017-08-11 06:05] LABS: BASO % 0.6 % (0.0-1.0); EOS # 0.2 10*3/uL (0.0-0.4); EOS % 4.6 % (1.0-4.0); HEMATOCRIT 27.2 % (37.0-47.0); HEMOGLOBIN 8.4 g/dl (12.0-16.0); LYMPH # 1.5 10*3/uL (1.3-4.4); LYMPH % 31.5 % (27.0-41.0); MEAN CELL VOLUME 94.1 fl (81.0-99.0); MEAN CORPUSCULAR HGB 29.1 pg (27.0-31.0); MEAN CORPUSCULAR HGB CONC 30.9 g/dl (33.0-37.0); MEAN PLATELET VOLUME 11.2 fl (9.6-12.3); MONO # 0.8 10*3/uL (0.1-1.0); MONO % 16.8 % (3.0-9.0); NEUT # 2.2 10*3/uL (2.3-7.9); NEUT % 46.3 % (47.0-73.0); PLATELET COUNT AUTOMATED 170 10*3/uL (130-400); RED BLOOD COUNT 2.89 10*6/uL (4.10-5.10); RED CELL DISTRI WIDTH 14.6 % (0-14.5); WHITE BLOOD COUNT 4.8 10*3/uL (4.8-10.8)
[2017-08-11 06:27] LABS: PHOSPHOROUS 4.1 mg/dL (2.5-4.9)
[2017-08-11 08:00] VITALS: BP 121/60
[2017-08-11 12:00] VITALS: BP 117/57
[2017-08-11 16:00] VITALS: BP 150/54
[2017-08-11 20:00] VITALS: BP 147/68
[2017-08-12] VITALS (7 sets, daily range): BP systolic 147–182; BP diastolic 53–88
[2017-08-12 06:25] LABS: BASO % 0.4 % (0.0-1.0); EOS # 0.4 10*3/uL (0.0-0.4); EOS % 6.6 % (1.0-4.0); HEMATOCRIT 28.2 % (37.0-47.0); HEMOGLOBIN 8.6 g/dl (12.0-16.0); LYMPH # 1.4 10*3/uL (1.3-4.4); LYMPH % 24.6 % (27.0-41.0); MEAN CELL VOLUME 94.9 fl (81.0-99.0); MEAN CORPUSCULAR HGB CONC 30.5 g/dl (33.0-37.0); MEAN PLATELET VOLUME 11.3 fl (9.6-12.3); MONO # 0.9 10*3/uL (0.1-1.0); MONO % 15.1 % (3.0-9.0); NEUT % 53.1 % (47.0-73.0); PLATELET COUNT AUTOMATED 220 10*3/uL (130-400); RED BLOOD COUNT 2.97 10*6/uL (4.10-5.10); RED CELL DISTRI WIDTH 14.6 % (0-14.5); WHITE BLOOD COUNT 5.6 10*3/uL (4.8-10.8)
[2017-08-12 06:54] LABS: CREATININE 4.1 mg/dL (0.55-1.02); PHOSPHOROUS 4.2 mg/dL (2.5-4.9); POTASSIUM 4.1 mmol/L (3.5-5.1)
[2017-08-13] VITALS (10 sets, daily range): BP systolic 104–182; BP diastolic 53–88
[2017-08-14] VITALS: BP 156/59
[2017-08-14 06:00] VITALS: BP 160/62
[2017-08-14 06:42] LABS: CREATININE 3.37 mg/dL (0.55-1.02); POTASSIUM 4.4 mmol/L (3.5-5.1)
[2017-08-14 08:00] VITALS: BP 166/68
[2017-08-14 12:00] VITALS: BP 134/82
[2017-08-14 16:00] VITALS: BP 163/83
[2017-08-14 20:00] VITALS: BP 165/69
[2017-08-15] VITALS: BP 165/66
[2017-08-15 03:30] VITALS: BP 170/84
[2017-08-15 05:30] VITALS: BP 162/84
[2017-08-15 08:00] VITALS: BP 154/72
[2017-08-15] MEDS ORDERED: CIPRO500 MG PO (10:52)
[2017-08-15] MEDS ORDERED: AMLODIPINE BESYL5 MG PO (11:01)
== END 2017-08-15 12:09 | disposition home or self-care (01) | DRG 314 ==
LOC: ED 05:09 → ICCU 06:46 → 5E 06:46 → EDHOLD 06:46 → 4E 07:36 → ICCU 09:27 → 5E 08-11 07:14
PROVIDERS: Emergency Medicine; Internal Medicine
PROC: 0JPT0WZ Removal of Totally Implantable Vascular Access Device from Trunk Subcutaneous Tissue and Fascia, Open Approach (ICD-10-PCS; principal; 2017-08-13)
DX: T82.7XXA Infection and inflammatory reaction due to other cardiac and vascular devices, implants and grafts, initial encounter (principal); A41.59 Other Gram-negative sepsis; N18.5 Chronic kidney disease, stage 5; N17.9 Acute kidney failure, unspecified; Z94.4 Liver transplant status; E11.22 Type 2 diabetes mellitus with diabetic chronic kidney disease; D52.8 Other folate deficiency anemias; E44.1 Mild protein-calorie malnutrition; D62 Acute posthemorrhagic anemia; R65.20 Severe sepsis without septic shock; K92.2 Gastrointestinal hemorrhage, unspecified; F33.0 Major depressive disorder, recurrent, mild; N39.0 Urinary tract infection, site not specified; N12 Tubulo-interstitial nephritis, not specified as acute or chronic; Z68.33 Body mass index [BMI] 33.0-33.9, adult; D63.8 Anemia in other chronic diseases classified elsewhere; J44.9 Chronic obstructive pulmonary disease, unspecified; B96.20 Unspecified Escherichia coli [E. coli] as the cause of diseases classified elsewhere; G89.29 Other chronic pain; M54.9 Dorsalgia, unspecified; M1A.9XX0 Chronic gout, unspecified, without tophus (tophi); K59.09 Other constipation; K21.0 Gastro-esophageal reflux disease with esophagitis; K74.60 Unspecified cirrhosis of liver; R62.7 Adult failure to thrive; E66.01 Morbid (severe) obesity due to excess calories; N90.5 Atrophy of vulva; Z16.12 Extended spectrum beta lactamase (ESBL) resistance; J45.909 Unspecified asthma, uncomplicated; Y84.8 Other medical procedures as the cause of abnormal reaction of the patient, or of later complication, without mention of misadventure at the time of the procedure; Z98.891 History of uterine scar from previous surgery; Z88.1 Allergy status to other antibiotic agents; Z88.8 Allergy status to other drugs, medicaments and biological substances; Z79.899 Other long term (current) drug therapy; Z90.49 Acquired absence of other specified parts of digestive tract; Z80.8 Family history of malignant neoplasm of other organs or systems; Z83.3 Family history of diabetes mellitus; Z82.49 Family history of ischemic heart disease and other diseases of the circulatory system; Y92.098 Other place in other non-institutional residence as the place of occurrence of the external cause

== ENCOUNTER → 2017-08-18 | Outpatient (CLI) | payer MEDICARE, BC ==
[2017-08-18 12:13] LABS: BASO % 0.5 % (0.0-1.0); EOS # 0.5 10*3/uL (0.0-0.4); EOS % 5.5 % (1.0-4.0); HEMATOCRIT 27.4 % (37.0-47.0); HEMOGLOBIN 8.3 g/dl (12.0-16.0); LYMPH # 2.2 10*3/uL (1.3-4.4); LYMPH % 26.9 % (27.0-41.0); MEAN CELL VOLUME 93.5 fl (81.0-99.0); MEAN CORPUSCULAR HGB 28.3 pg (27.0-31.0); MEAN CORPUSCULAR HGB CONC 30.3 g/dl (33.0-37.0); MEAN PLATELET VOLUME 11.3 fl (9.6-12.3); MONO # 0.7 10*3/uL (0.1-1.0); MONO % 8.6 % (3.0-9.0); NEUT # 4.8 10*3/uL (2.3-7.9); PLATELET COUNT AUTOMATED 260 10*3/uL (130-400); RED BLOOD COUNT 2.93 10*6/uL (4.10-5.10); RED CELL DISTRI WIDTH 14.4 % (0-14.5); WHITE BLOOD COUNT 8.2 10*3/uL (4.8-10.8)
[2017-08-18 12:22] LABS: ALBUMIN 3.2 gm/dl (3.1-4.5); CREATININE 4.45 mg/dL (0.55-1.02); PHOSPHOROUS 5.6 mg/dL (2.5-4.9); POTASSIUM 5.1 mmol/L (3.5-5.1); TOTAL PROTEIN 6.9 gm/dL (6.4-8.2)
== END | disposition home or self-care (01) ==
LOC: LAB 11:39
PROVIDERS: Internal Medicine Nephrology
DX: N18.5 Chronic kidney disease, stage 5 (principal)

== ENCOUNTER → 2018-02-21 | Outpatient (CLI) | payer MEDICARE, BC ==
[2018-02-21 11:16] LABS: BILIRUBIN NEGATIVE (NEGATIVE); BLOOD NEGATIVE (NEGATIVE); CLARITY SL CLOUDY (CLEAR); COLOR YELLOW (YELLOW); GLUCOSE NEGATIVE (NEGATIVE); KETONE NEGATIVE (NEGATIVE); LEUKO ESTERASE NEGATIVE (NEGATIVE); NITRITE NEGATIVE (NEGATIVE); SPECIFIC GRAVITY 1.015 (1.005-1.030); UROBILINOGEN 0.2 E.U./dl (0.2-1.0)
[2018-02-21 11:19] LABS: BASO % 0.5 % (0.0-1.0); EOS # 0.4 10*3/uL (0.0-0.4); EOS % 4.9 % (1.0-4.0); HEMOGLOBIN 8.8 g/dl (12.0-16.0); LYMPH # 2.1 10*3/uL (1.3-4.4); LYMPH % 26.5 % (27.0-41.0); MEAN CELL VOLUME 92.4 fl (81.0-99.0); MEAN CORPUSCULAR HGB CONC 30.3 g/dl (33.0-37.0); MEAN PLATELET VOLUME 11.1 fl (9.6-12.3); MONO # 0.7 10*3/uL (0.1-1.0); MONO % 8.9 % (3.0-9.0); NEUT # 4.6 10*3/uL (2.3-7.9); NEUT % 58.9 % (47.0-73.0); PLATELET COUNT AUTOMATED 235 10*3/uL (130-400); RED BLOOD COUNT 3.14 10*6/uL (4.10-5.10); RED CELL DISTRI WIDTH 14.6 % (0-14.5); WHITE BLOOD COUNT 7.8 10*3/uL (4.8-10.8)
[2018-02-21 11:24] LABS: ALBUMIN 3.2 gm/dl (3.1-4.5); CREATININE 3.83 mg/dL (0.55-1.02); POTASSIUM 5.2 mmol/L (3.5-5.1)
[2018-02-21 11:25] LABS: PHOSPHOROUS 3.8 mg/dL (2.5-4.9)
[2018-02-21 11:27] LABS: BACTERIA 2+
== END | disposition home or self-care (01) ==
LOC: LAB 10:37
PROVIDERS: Internal Medicine Nephrology
DX: N18.4 Chronic kidney disease, stage 4 (severe) (principal); Z79.899 Other long term (current) drug therapy

== ENCOUNTER → 2018-05-27 | Outpatient (CLI) | payer MEDICARE, BC | END | disposition home or self-care (01) | LOC: RAD 12:38 | DX: R05 Cough (principal); I12.9 Hypertensive chronic kidney disease with stage 1 through stage 4 chronic kidney disease, or unspecified chronic kidney disease; N18.4 Chronic kidney disease, stage 4 (severe); C50.912 Malignant neoplasm of unspecified site of left female breast; J45.909 Unspecified asthma, uncomplicated; D64.9 Anemia, unspecified ==

== ENCOUNTER → 2018-06-13 | Outpatient (CLI) | payer MEDICARE, BC ==
[2018-06-13 13:36] LABS: BASO % 0.5 % (0.0-1.0); EOS # 1.1 10*3/uL (0.0-0.4); EOS % 12.2 % (1.0-4.0); HEMATOCRIT 37.7 % (37.0-47.0); HEMOGLOBIN 11.3 g/dl (12.0-16.0); LYMPH # 2.2 10*3/uL (1.3-4.4); LYMPH % 24.8 % (27.0-41.0); MEAN CELL VOLUME 99.5 fl (81.0-99.0); MEAN CORPUSCULAR HGB 29.8 pg (27.0-31.0); MEAN PLATELET VOLUME 11.6 fl (9.6-12.3); MONO # 0.6 10*3/uL (0.1-1.0); NEUT # 4.8 10*3/uL (2.3-7.9); NEUT % 55.2 % (47.0-73.0); PLATELET COUNT AUTOMATED 245 10*3/uL (130-400); RED BLOOD COUNT 3.79 10*6/uL (4.10-5.10); RED CELL DISTRI WIDTH 19.1 % (0-14.5); WHITE BLOOD COUNT 8.8 10*3/uL (4.8-10.8)
[2018-06-13 13:42] LABS: CREATININE 3.77 mg/dL (0.55-1.02); IRON 134 ug/dL (50-170); POTASSIUM 4.5 mmol/L (3.5-5.1); TOTAL IRON BINDING CAPACITY 395 ug/dl (250-450)
[2018-06-13 15:37] LABS: PTH INTACT 355.2 pg/mL (18.5-88.0)
== END | disposition home or self-care (01) ==
LOC: LAB 13:02
PROVIDERS: Internal Medicine Nephrology; Physician Assistant
DX: D50.9 Iron deficiency anemia, unspecified (principal); N18.5 Chronic kidney disease, stage 5; N25.81 Secondary hyperparathyroidism of renal origin; R13.12 Dysphagia, oropharyngeal phase

== ENCOUNTER → 2018-07-10 | Outpatient (CLI) | payer MEDICARE, BC ==
[2018-07-10 14:31] LABS: BILIRUBIN NEGATIVE (NEGATIVE); BLOOD TRACE-INTACT (NEGATIVE); CLARITY SL CLOUDY (CLEAR); COLOR YELLOW (YELLOW); GLUCOSE NEGATIVE (NEGATIVE); KETONE NEGATIVE (NEGATIVE); LEUKO ESTERASE 1+ (NEGATIVE); NITRITE NEGATIVE (NEGATIVE); SPECIFIC GRAVITY 1.015 (1.005-1.030); UROBILINOGEN 0.2 E.U./dl (0.2-1.0)
[2018-07-10 14:43] LABS: BASO % 0.5 % (0.0-1.0); EOS # 0.9 10*3/uL (0.0-0.4); EOS % 10.9 % (1.0-4.0); LYMPH # 2.1 10*3/uL (1.3-4.4); LYMPH % 25.3 % (27.0-41.0); MEAN CORPUSCULAR HGB 31.7 pg (27.0-31.0); MEAN CORPUSCULAR HGB CONC 32.4 g/dl (33.0-37.0); MEAN PLATELET VOLUME 11.2 fl (9.6-12.3); MONO # 0.4 10*3/uL (0.1-1.0); MONO % 5.4 % (3.0-9.0); NEUT # 4.7 10*3/uL (2.3-7.9); NEUT % 57.5 % (47.0-73.0); PLATELET COUNT AUTOMATED 201 10*3/uL (130-400); RED BLOOD COUNT 3.47 10*6/uL (4.10-5.10); RED CELL DISTRI WIDTH 16.6 % (0-14.5); WHITE BLOOD COUNT 8.2 10*3/uL (4.8-10.8)
[2018-07-10 14:45] LABS: BACTERIA TRACE; WBC 51-100 wbc/hpf (0-5)
[2018-07-10 15:10] LABS: ALBUMIN 3.5 gm/dl (3.1-4.5); CREATININE 3.84 mg/dL (0.55-1.02); PHOSPHOROUS 3.6 mg/dL (2.5-4.9); POTASSIUM 4.6 mmol/L (3.5-5.1)
== END | disposition home or self-care (01) ==
LOC: LAB 13:33
PROVIDERS: Internal Medicine; Internal Medicine Nephrology
DX: R82.79 Other abnormal findings on microbiological examination of urine (principal); N18.4 Chronic kidney disease, stage 4 (severe); Z79.899 Other long term (current) drug therapy

== ENCOUNTER → 2018-08-27 | Outpatient (CLI) | payer MEDICARE, BC ==
[2018-08-27 12:45] LABS: BASO % 0.4 % (0.0-1.0); EOS # 0.5 10*3/uL (0.0-0.4); EOS % 6.6 % (1.0-4.0); HEMATOCRIT 33.9 % (37.0-47.0); HEMOGLOBIN 10.8 g/dl (12.0-16.0); LYMPH % 26.1 % (27.0-41.0); MEAN CELL VOLUME 98.3 fl (81.0-99.0); MEAN CORPUSCULAR HGB 31.3 pg (27.0-31.0); MEAN CORPUSCULAR HGB CONC 31.9 g/dl (33.0-37.0); MEAN PLATELET VOLUME 11.3 fl (9.6-12.3); MONO # 0.6 10*3/uL (0.1-1.0); MONO % 8.2 % (3.0-9.0); NEUT # 4.4 10*3/uL (2.3-7.9); NEUT % 58.4 % (47.0-73.0); PLATELET COUNT AUTOMATED 207 10*3/uL (130-400); RED BLOOD COUNT 3.45 10*6/uL (4.10-5.10); RED CELL DISTRI WIDTH 14.4 % (0-14.5); WHITE BLOOD COUNT 7.6 10*3/uL (4.8-10.8)
[2018-08-27 12:52] LABS: ALBUMIN 3.9 gm/dl (3.1-4.5); CREATININE 3.84 mg/dL (0.55-1.02); PHOSPHOROUS 4.5 mg/dL (2.5-4.9); POTASSIUM 4.5 mmol/L (3.5-5.1)
[2018-08-27 13:14] LABS: ALBUMIN 3.7 gm/dl (3.1-4.5); CREATININE 3.67 mg/dL (0.55-1.02); POTASSIUM 4.4 mmol/L (3.5-5.1); TOTAL PROTEIN 7.3 gm/dL (6.4-8.2)
[2018-08-27 14:15] LABS: VITAMIN D, 25-HYDROXY 18.5 ng/mL (30-100)
[2018-08-27 14:16] LABS: PTH INTACT 399.3 pg/mL (18.5-88.0)
== END | disposition home or self-care (01) ==
LOC: LAB 10:58
PROVIDERS: Internal Medicine Nephrology; Nurse Practitioner Acute Care
DX: Z41.8 Encounter for other procedures for purposes other than remedying health state (principal); Z48.23 Encounter for aftercare following liver transplant; Z01.812 Encounter for preprocedural laboratory examination; R73.02 Impaired glucose tolerance (oral); E61.2 Magnesium deficiency; K76.9 Liver disease, unspecified; R82.79 Other abnormal findings on microbiological examination of urine; N25.81 Secondary hyperparathyroidism of renal origin; N18.5 Chronic kidney disease, stage 5; Z94.4 Liver transplant status

== ENCOUNTER → 2018-10-16 | Outpatient (CLI) | payer MEDICARE, BC ==
[2018-10-16 13:54] LABS: BASO % 0.3 % (0.0-1.0); EOS # 0.5 10*3/uL (0.0-0.4); EOS % 5.3 % (1.0-4.0); HEMATOCRIT 32.4 % (37.0-47.0); HEMOGLOBIN 10.3 g/dl (12.0-16.0); LYMPH # 1.9 10*3/uL (1.3-4.4); LYMPH % 22.5 % (27.0-41.0); MEAN CELL VOLUME 100.9 fl (81.0-99.0); MEAN CORPUSCULAR HGB 32.1 pg (27.0-31.0); MEAN CORPUSCULAR HGB CONC 31.8 g/dl (33.0-37.0); MONO # 0.7 10*3/uL (0.1-1.0); MONO % 7.9 % (3.0-9.0); NEUT # 5.4 10*3/uL (2.3-7.9); NEUT % 63.3 % (47.0-73.0); PLATELET COUNT AUTOMATED 257 10*3/uL (130-400); RED BLOOD COUNT 3.21 10*6/uL (4.10-5.10); RED CELL DISTRI WIDTH 14.6 % (0-14.5); WHITE BLOOD COUNT 8.6 10*3/uL (4.8-10.8)
[2018-10-16 14:23] LABS: ALBUMIN 3.7 gm/dl (3.1-4.5); CREATININE 3.79 mg/dL (0.55-1.02); PHOSPHOROUS 3.6 mg/dL (2.5-4.9); POTASSIUM 4.3 mmol/L (3.5-5.1); TOTAL PROTEIN 7.3 gm/dL (6.4-8.2)
== END | disposition home or self-care (01) ==
LOC: CT 13:00 → LAB 13:06
DX: Z01.818 Encounter for other preprocedural examination (principal); Z01.812 Encounter for preprocedural laboratory examination; Z48.23 Encounter for aftercare following liver transplant; N26.1 Atrophy of kidney (terminal); N18.3 Chronic kidney disease, stage 3 (moderate); K76.9 Liver disease, unspecified; R73.02 Impaired glucose tolerance (oral); E61.2 Magnesium deficiency; Z94.4 Liver transplant status

== ENCOUNTER 2018-11-18 12:46 | Inpatient (IN) | payer MEDICARE, BC ==
[~2018-11-18] VITALS: Ht 165.1 cm; Wt 89.4 kg
[~2018-11-18 12:46] MED LIST changes: +LOPRESSOR50 M1 PO; -METOPROLOL SUCC25 M2 PO
[2018-11-18 12:47] VITALS: BP 149/64
[2018-11-18 13:38] LABS: BASO % 0.6 % (0.0-1.0); EOS # 0.4 10*3/uL (0.0-0.4); EOS % 6.2 % (1.0-4.0); HEMATOCRIT 30.8 % (37.0-47.0); HEMOGLOBIN 9.9 g/dl (12.0-16.0); LYMPH # 1.7 10*3/uL (1.3-4.4); LYMPH % 25.2 % (27.0-41.0); MEAN CELL VOLUME 99.4 fl (81.0-99.0); MEAN CORPUSCULAR HGB 31.9 pg (27.0-31.0); MEAN CORPUSCULAR HGB CONC 32.1 g/dl (33.0-37.0); MEAN PLATELET VOLUME 10.7 fl (9.6-12.3); MONO # 0.5 10*3/uL (0.1-1.0); NEUT # 4.1 10*3/uL (2.3-7.9); NEUT % 60.7 % (47.0-73.0); PLATELET COUNT AUTOMATED 256 10*3/uL (130-400); RED CELL DISTRI WIDTH 13.8 % (0-14.5); WHITE BLOOD COUNT 6.7 10*3/uL (4.8-10.8)
[2018-11-18 13:49] LABS: ACT PARTIAL THROMBO TIME 33.2 SECONDS (20.0-32.1)
[2018-11-18 13:54] LABS: ALBUMIN 3.7 gm/dl (3.1-4.5); BUN 46 mg/dl (7-24); CHLORIDE 111 mmol/L (98-107); CREATININE 4.06 mg/dL (0.55-1.02); SGOT/AST 13 IU/L (3-35); SGPT/ALT 14 U/L (12-78); SODIUM 139 mmol/L (136-145); TOTAL PROTEIN 7.1 gm/dL (6.4-8.2)
[2018-11-18 13:56] LABS: ALKALINE PHOSPHATASE 241 U/L (45-117)
[2018-11-18 13:58] LABS: TROPONIN I < 0.015 ng/ml (<0.045)
[2018-11-18 14:47] VITALS: BP 125/54
--- NOTE | 2018-11-18 16:20 | NUR ---
A 73, admitted to 4E, under the services of Dr. FRANCESCO SCOTT,LENORE Griffin with a diagnosis of ASTHMA EXACERBATION. Chief complaint is DYSPNEA. Patient arrived via stretcher from ER. Monitor applied. Initial assessment completed. Vital signs taken and recorded. LENORE JACOBO MD notified of admission to the unit. Orders received. See assessment for past medical history, medications and allergies. Patient and/or family oriented to unit. [facility] visitation policy reviewed. Clothing/patient valuable form completed. REYMUNDO SCHREIBER
[2018-11-18] MEDS ORDERED: NORVASC10 MG PO (16:31)
[2018-11-18] MEDS ORDERED: SODIUM BICARBO650 MG PO (16:41)
[2018-11-18] MEDS ORDERED: Rocaltrol0.25 MCG PO (16:44)
[2018-11-18] MEDS ORDERED: DICYCLOMINE HCL10 MG PO (16:45)
[2018-11-18] MEDS ORDERED: PROGRAF5 MG PO (16:58)
--- NOTE | 2018-11-18 17:20 | NUR ---
CALL PLACED TO DR. MAYA, ORDER RECEIVED TO ADMIT TO TELEMETRY, REVIEWED AND CONTINUED SOME OF PATIENTS HOME MEDICATIONS PER MED REC, ORDER RECEIVED FOR CONSULT, R/T TO PATIENTS ELEVATED CREATININE LEVEL. REGULAR DIET ORDERED.
--- NOTE | 2018-11-18 18:00 | NUR ---
DR WILLIS SERVICE NOTIFIED OF CONSULT AND CALL BACK WAS REQUESTED
[2018-11-18 20:00] VITALS: BP 144/65
[2018-11-19] VITALS: BP 121/106
--- NOTE | 2018-11-19 04:26 | NUR ---
24 HR chart check completed.
--- NOTE | 2018-11-19 07:50 | NUR ---
Shift chart check completed.24 HR chart check completed. Patient resting easily, having aerosol treatment with no voiced complaints during bedside report.
[2018-11-19 08:00] VITALS: BP 148/63
[2018-11-19 08:15] VITALS: BP 142/80
--- NOTE | 2018-11-19 09:05 | NUR ---
ON ASSESSMENT PATIENT IS ALERT, ORIENTED, ANXIOUS TO GO HOME. "THEY TOLD ME I WOULD JUST BE HERE OVERNIGHT". SHE CLAIMS DR JONES HASN'T SEEN HER YET AND SHE'S UPSET THAT HER DR IS DR AVILES NOT DR MAYA.
--- NOTE | 2018-11-19 11:15 | NUR ---
PT WAS UPSET AND CRYING. SHE HAS A SICK DOG AT HOME AND THOUGHT SHE WAS ONLY GOING TO BE HERE OVERNIGHT. DR MAYA INFORMED. ORDERS WERE ENTERED AND PT HAS BEEN MEDICATED WITH [facility] PER ORDER.
[2018-11-19 12:00] VITALS: BP 150/60
--- NOTE | 2018-11-19 14:00 | NUR ---
Insurance Adviser in to talk to patient. Patient states lives at home with her . There are 18-22 steps in the home. Physician: Dr. Sola Carranza Pharmacy: [facility] in [place] Home health services: has had in the past but not currently and doesn't feel she needs it at this time Patient's level of ADLs: MINIMAL ASSIST Patient has working utilities: yes DME: walker, cane Follow-up physician's appointment after d/c: she prefers to make her own follow up appt after discharge Does patient want to access PORTAL?: no Discharge plan discussed with patient. She lives at home with her . She is independent in her ADLs and ambulates with either a walker or a cane. Discussed home health care services and she denies any home needs at this time. She is upset as the physician said she would be here just one day and she was not discharged today. She states she has a mother with dementia, a sick dog, and a who just finished with his cancer treatments. She understands she is not ready to be discharged as when she gets up and moves she still becomes short of breath. her will transport on discharge. When medically stable she will be discharged to home. PHILIP JI
[2018-11-19 16:00] VITALS: BP 143/82
--- NOTE | 2018-11-19 16:40 | NUR ---
ZIA GIVEN FOR C/O HEADACHE AND RIB PAIN RATED 7/10. CALL LIGHT IN REACH. WILL MONITOR.
[2018-11-19 17:15] LABS: BILIRUBIN NEGATIVE (NEGATIVE); BLOOD NEGATIVE (NEGATIVE); CLARITY SL CLOUDY (CLEAR); COLOR YELLOW (YELLOW); GLUCOSE TRACE (NEGATIVE); KETONE NEGATIVE (NEGATIVE); LEUKO ESTERASE NEGATIVE (NEGATIVE); NITRITE NEGATIVE (NEGATIVE); UROBILINOGEN 0.2 E.U./dl (0.2-1.0)
[2018-11-19 17:24] LABS: BACTERIA TRACE
--- NOTE | 2018-11-19 17:36 | NUR ---
PER PT, ZIA WAS EFFECTIVE. HEADACHE IS GONE BUT RIB PAIN IS RATED 2/10. CALL LIGHT IN REACH.
[2018-11-19 20:00] VITALS: BP 150/69
--- NOTE | 2018-11-19 23:56 | NUR ---
MEDICATED WITH PRN ZIA FOR C/O PAIN IN HER ABD. WILL MONITOR
[2018-11-20 08:00] VITALS: BP 140/57
[2018-11-20] MEDS ORDERED: AUGMENTIN 875-875 MG PO (10:27)
[2018-11-20] MEDS ORDERED: MEDROL DOSEPAK4 MG PO (10:27)
--- NOTE | 2018-11-20 10:52 | NUR ---
[facility] Discharge instructions reviewed with patient/family. Patient receptive and verbalizes understanding. Follow-up care arranged. Written instructions given to patient/family. KI REDMOND
== END 2018-11-20 10:52 | disposition home or self-care (01) | DRG 202 ==
LOC: ED 12:46 → EDHOLD 15:03 → 4E 15:03
PROVIDERS: Emergency Medicine; ADMIT Internal Medicine
DX: J45.41 Moderate persistent asthma with (acute) exacerbation (principal); J44.1 Chronic obstructive pulmonary disease with (acute) exacerbation; F33.0 Major depressive disorder, recurrent, mild; Z94.4 Liver transplant status; I12.0 Hypertensive chronic kidney disease with stage 5 chronic kidney disease or end stage renal disease; N18.5 Chronic kidney disease, stage 5; E87.2 Acidosis; N25.81 Secondary hyperparathyroidism of renal origin; E44.1 Mild protein-calorie malnutrition; K74.60 Unspecified cirrhosis of liver; F41.1 Generalized anxiety disorder; D63.8 Anemia in other chronic diseases classified elsewhere; K21.0 Gastro-esophageal reflux disease with esophagitis; G89.29 Other chronic pain; E66.01 Morbid (severe) obesity due to excess calories; K59.09 Other constipation; M1A.9XX0 Chronic gout, unspecified, without tophus (tophi); E53.8 Deficiency of other specified B group vitamins; M54.9 Dorsalgia, unspecified; Z88.1 Allergy status to other antibiotic agents; Z68.32 Body mass index [BMI] 32.0-32.9, adult

== ENCOUNTER → 2018-12-30 | Outpatient (CLI) | payer MEDICARE, BC ==
[~2018-12-30] MED LIST changes: +AUGMENTIN 875-875 MG PO; +DICYCLOMINE HCL10 MG PO; +MEDROL DOSEPAK4 MG PO; +NORVASC10 MG PO; +PROGRAF5 MG PO; +Rocaltrol0.25 MCG PO; +SODIUM BICARBO650 MG PO
[2018-12-30 15:15] LABS: BASO % 0.4 % (0.0-1.0); EOS # 0.3 10*3/uL (0.0-0.4); EOS % 3.5 % (1.0-4.0); HEMATOCRIT 33.9 % (37.0-47.0); HEMOGLOBIN 10.7 g/dl (12.0-16.0); LYMPH # 2.2 10*3/uL (1.3-4.4); LYMPH % 27.2 % (27.0-41.0); MEAN CORPUSCULAR HGB 30.9 pg (27.0-31.0); MEAN CORPUSCULAR HGB CONC 31.6 g/dl (33.0-37.0); MEAN PLATELET VOLUME 11.1 fl (9.6-12.3); MONO # 0.6 10*3/uL (0.1-1.0); MONO % 7.4 % (3.0-9.0); NEUT # 4.9 10*3/uL (2.3-7.9); PLATELET COUNT AUTOMATED 243 10*3/uL (130-400); RED BLOOD COUNT 3.46 10*6/uL (4.10-5.10); RED CELL DISTRI WIDTH 13.7 % (0-14.5)
[2018-12-30 15:48] LABS: ALBUMIN 3.6 gm/dl (3.1-4.5); CREATININE 4.83 mg/dL (0.55-1.02); PHOSPHOROUS 4.2 mg/dL (2.5-4.9); POTASSIUM 5.6 mmol/L (3.5-5.1)
== END | disposition home or self-care (01) ==
LOC: LAB 00:43
PROVIDERS: Internal Medicine Nephrology
DX: N18.4 Chronic kidney disease, stage 4 (severe) (principal); Z79.899 Other long term (current) drug therapy

== ENCOUNTER → 2019-01-03 | Outpatient (CLI) | payer MEDICARE, BC ==
[2019-01-04 08:09] LABS: HEPATITIS B SURFACE AB 006395 Non Reactive (.); HEPATITIS B SURFACE AG Negative (Negative); HEPATITIS C VIRUS ANTIBODY <0.1 s/co (0.0-0.9)
== END | disposition home or self-care (01) ==
LOC: LAB 14:12
PROVIDERS: Internal Medicine Nephrology
DX: R11.2 Nausea with vomiting, unspecified (principal); N18.5 Chronic kidney disease, stage 5

== ENCOUNTER → 2019-07-28 | Outpatient (CLI) | payer MEDICARE, BC | END | disposition home or self-care (01) | LOC: CARD 07-15 10:00 | DX: R00.2 Palpitations (principal) ==

== ENCOUNTER → 2020-03-31 | Outpatient (CLI) | payer MEDICARE, BC | END | disposition home or self-care (01) | LOC: COVID19 14:58 | PROVIDERS: ATTEND Internal Medicine | DX: Z11.52 Encounter for screening for COVID-19 (principal) ==

== ENCOUNTER → 2020-07-29 | Outpatient (CLI) | payer MEDICARE, BC ==
[~2020-07-29] MED LIST changes: +RENA-VITE1 TAB PO; +[UNRECOGNIZED DRUG - OTHER] PO
== END | disposition home or self-care (01) ==
LOC: CT 10:00
PROVIDERS: ATTEND Internal Medicine
DX: M47.812 Spondylosis without myelopathy or radiculopathy, cervical region (principal); I51.7 Cardiomegaly; J90 Pleural effusion, not elsewhere classified; M50.322 Other cervical disc degeneration at C5-C6 level; M48.02 Spinal stenosis, cervical region; M25.78 Osteophyte, vertebrae; M41.86 Other forms of scoliosis, lumbar region; M85.832 Other specified disorders of bone density and structure, left forearm; M48.07 Spinal stenosis, lumbosacral region; M51.36 Other intervertebral disc degeneration, lumbar region; M47.816 Spondylosis without myelopathy or radiculopathy, lumbar region; Z90.12 Acquired absence of left breast and nipple; Z94.4 Liver transplant status

== ENCOUNTER 2020-09-04 18:13 | Inpatient (IN) | payer MEDICARE, BC ==
[~2020-09-04] VITALS: Ht 165.1 cm; Wt 80.7 kg
[2020-09-04 18:13] VITALS: BP 169/69
[~2020-09-04 18:13] MED LIST changes: +LASIX20 MG PO; +RENAL-VITE TAB0.8 MG PO
[2020-09-04 18:49] LABS: BASO % 0.2 % (0.0-1.0); EOS # 0.5 10*3/uL (0.0-0.4); EOS % 3.9 % (1.0-4.0); HEMATOCRIT 27.6 % (37.0-47.0); LYMPH # 1.3 10*3/uL (1.3-4.4); LYMPH % 10.3 % (27.0-41.0); MEAN CELL VOLUME 95.5 fl (81.0-99.0); MEAN CORPUSCULAR HGB 30.8 pg (27.0-31.0); MEAN CORPUSCULAR HGB CONC 32.2 g/dl (33.0-37.0); MEAN PLATELET VOLUME 10.7 fl (9.6-12.3); MONO # 0.9 10*3/uL (0.1-1.0); MONO % 7.6 % (3.0-9.0); NEUT # 9.6 10*3/uL (2.3-7.9); NEUT % 77.7 % (47.0-73.0); PLATELET COUNT AUTOMATED 149 10*3/uL (130-400); RED BLOOD COUNT 2.89 10*6/uL (4.10-5.10); RED CELL DISTRI WIDTH 17.8 % (0-14.5); WHITE BLOOD COUNT 12.4 10*3/uL (4.8-10.8)
[2020-09-04 19:06] LABS: ALBUMIN 3.2 gm/dl (3.1-4.5); CREATININE 3.14 mg/dL (0.55-1.02); POTASSIUM 2.6 mmol/L (3.5-5.1); TOTAL PROTEIN 6.7 gm/dL (6.4-8.2); TROPONIN I 0.025 ng/ml (<0.045)
[2020-09-04 19:22] VITALS: BP 163/80
[2020-09-04 21:59] VITALS: BP 138/66
[2020-09-05 01:16] LABS: BILIRUBIN Negative (Negative); BLOOD Negative (Negative); CLARITY Clear (Clear); COLOR Yellow (Yellow); GLUCOSE Negative (Negative); KETONE Negative (Negative); LEUKO ESTERASE Trace (Negative); NITRITE Negative (Negative)
[2020-09-05 01:39] LABS: BACTERIA TRACE
[2020-09-05 03:29] VITALS: BP 132/65
[2020-09-05 04:30] VITALS: BP 120/60
[2020-09-05 05:40] VITALS: BP 131/65
[2020-09-05 08:00] VITALS: BP 138/76
== END 2020-09-05 13:45 | disposition left against medical advice (07) | DRG 281 ==
LOC: ED 18:13 → EDHOLD 09-05 02:21
PROVIDERS: Emergency Medicine; Student in an Organized Health Care Education/Training Program; ADMIT Internal Medicine; ATTEND Internal Medicine
DX: I21.4 Non-ST elevation (NSTEMI) myocardial infarction (principal); Z94.4 Liver transplant status; I50.9 Heart failure, unspecified; Z53.29 Procedure and treatment not carried out because of patient's decision for other reasons; E87.6 Hypokalemia; Z88.1 Allergy status to other antibiotic agents; Z88.8 Allergy status to other drugs, medicaments and biological substances; Z90.49 Acquired absence of other specified parts of digestive tract; Z83.3 Family history of diabetes mellitus; Z82.49 Family history of ischemic heart disease and other diseases of the circulatory system; Z80.8 Family history of malignant neoplasm of other organs or systems

== ENCOUNTER → 2020-11-25 | Outpatient (CLI) | payer MEDICARE, BC ==
[2020-11-24 16:00] LABS: HEMATOCRIT 21.9 % (37.0-47.0); MEAN CELL VOLUME 98.6 fl (81.0-99.0); MEAN CORPUSCULAR HGB 29.3 pg (27.0-31.0); MEAN CORPUSCULAR HGB CONC 29.7 g/dl (33.0-37.0); MEAN PLATELET VOLUME 10.4 fl (9.6-12.3); PLATELET COUNT AUTOMATED 313 10*3/uL (130-400); RED BLOOD COUNT 2.22 10*6/uL (4.10-5.10); RED CELL DISTRI WIDTH 15.4 % (0-14.5); WHITE BLOOD COUNT 6.6 10*3/uL (4.8-10.8)
[2020-11-24 17:31] LABS: PLATELET SUFFICIENCY NORMAL (NORMAL); TOTAL CELLS COUNTED 100 #CELLS
[2020-11-25 09:04] VITALS: BP 119/32
[2020-11-25 09:35] VITALS: BP 102/27
[2020-11-25 10:20] VITALS: BP 110/38
[2020-11-25 11:26] VITALS: BP 110/48
[2020-11-25 12:04] VITALS: BP 104/49
== END | disposition home or self-care (01) ==
LOC: TRNFUSION 01:29
PROVIDERS: ATTEND Internal Medicine Nephrology
DX: D64.9 Anemia, unspecified (principal)

== ENCOUNTER → 2020-12-27 | Outpatient (CLI) | payer MEDICARE, BC | END | disposition home or self-care (01) | LOC: COVID19 17:51 | PROVIDERS: ATTEND Internal Medicine | DX: Z11.52 Encounter for screening for COVID-19 (principal) ==

== ENCOUNTER → 2021-03-15 | Outpatient (CLI) | payer MEDICARE, BC ==
[2021-03-15] VITALS (10 sets, daily range): BP systolic 112–141; BP diastolic 37–79
[2021-03-15 09:08] LABS: MEAN CELL VOLUME 101.1 fl (81.0-99.0); MEAN CORPUSCULAR HGB 30.7 pg (27.0-31.0); MEAN CORPUSCULAR HGB CONC 30.4 g/dl (33.0-37.0); MEAN PLATELET VOLUME 10.9 fl (9.6-12.3); PLATELET COUNT AUTOMATED 247 10*3/uL (130-400); RED BLOOD COUNT 1.89 10*6/uL (4.10-5.10); RED CELL DISTRI WIDTH 17.7 % (0-14.5)
[2021-03-15 09:16] LABS: HEMATOCRIT 19.1 % (37.0-47.0)
[2021-03-15 09:48] LABS: BASOPHILS 1 % (0-1); PLATELET SUFFICIENCY NORMAL (NORMAL); POLYCHROMASIA SLIGHT; TOTAL CELLS COUNTED 100 #CELLS
[2021-03-15 14:56] LABS: BASO % 0.2 % (0.0-1.0); EOS # 0.5 10*3/uL (0.0-0.4); EOS % 6.3 % (1.0-4.0); HEMATOCRIT 23.1 % (37.0-47.0); LYMPH # 1.1 10*3/uL (1.3-4.4); LYMPH % 13.3 % (27.0-41.0); MEAN CORPUSCULAR HGB 30.9 pg (27.0-31.0); MEAN CORPUSCULAR HGB CONC 32.5 g/dl (33.0-37.0); MEAN PLATELET VOLUME 10.5 fl (9.6-12.3); MONO # 0.8 10*3/uL (0.1-1.0); MONO % 8.9 % (3.0-9.0); NEUT # 6.1 10*3/uL (2.3-7.9); NEUT % 70.9 % (47.0-73.0); PLATELET COUNT AUTOMATED 221 10*3/uL (130-400); RED BLOOD COUNT 2.43 10*6/uL (4.10-5.10); RED CELL DISTRI WIDTH 17.4 % (0-14.5); WHITE BLOOD COUNT 8.6 10*3/uL (4.8-10.8)
[2021-03-15 14:57] LABS: MEAN CELL VOLUME 95.1 fl (81.0-99.0)
== END | disposition home or self-care (01) ==
LOC: TRNFUSION 03-14 15:59
PROVIDERS: ATTEND Internal Medicine Nephrology
DX: D64.9 Anemia, unspecified (principal); N18.9 Chronic kidney disease, unspecified; Z99.2 Dependence on renal dialysis; Z85.3 Personal history of malignant neoplasm of breast; Z90.12 Acquired absence of left breast and nipple; Z90.49 Acquired absence of other specified parts of digestive tract; Z98.890 Other specified postprocedural states

== ENCOUNTER → 2021-03-28 | Outpatient (CLI) | payer MEDICARE, BC | END | disposition home or self-care (01) | LOC: LAB 14:50 | PROVIDERS: ATTEND Internal Medicine | DX: C16.9 Malignant neoplasm of stomach, unspecified (principal); I12.0 Hypertensive chronic kidney disease with stage 5 chronic kidney disease or end stage renal disease; N18.6 End stage renal disease; Z79.899 Other long term (current) drug therapy ==

== ENCOUNTER 2021-10-05 21:39 | Emergency (ER) | payer MEDICARE, BC ==
[~2021-10-05] VITALS: Ht 162.5 cm; Wt 77.1 kg
[2021-10-05 22:17] LABS: MEAN CELL VOLUME 104.7 fl (81.0-99.0); MEAN CORPUSCULAR HGB 33.7 pg (27.0-31.0); MEAN CORPUSCULAR HGB CONC 32.2 g/dl (33.0-37.0); MEAN PLATELET VOLUME 10.5 fl (9.6-12.3); NUCLEATED RED BLOOD CELL 0.4 % (0.0-0.0); PLATELET COUNT AUTOMATED 139 10*3/uL (130-400); RED BLOOD COUNT 1.93 10*6/uL (4.10-5.10); RED CELL DISTRI WIDTH 15.9 % (0-14.5); WHITE BLOOD COUNT 4.9 10*3/uL (4.8-10.8)
[2021-10-05 22:25] LABS: HEMATOCRIT 20.2 % (37.0-47.0); MANUAL DIFF REFLEX YES
[2021-10-05 22:41] LABS: CREATININE 6.28 mg/dL (0.55-1.02); POTASSIUM 3.4 mmol/L (3.5-5.1); TOTAL PROTEIN 6.3 gm/dL (6.4-8.2)
[2021-10-05 22:52] LABS: PLATELET SUFFICIENCY LOW (NORMAL); TOTAL CELLS COUNTED 100 #CELLS
[2021-10-06] VITALS (14 sets, daily range): BP systolic 106–163; BP diastolic 43–66
== END 2021-10-06 07:05 | disposition home or self-care (01) ==
LOC: ED 21:39
PROVIDERS: Nurse Practitioner Family
DX: D63.1 Anemia in chronic kidney disease (principal); N18.5 Chronic kidney disease, stage 5; C16.9 Malignant neoplasm of stomach, unspecified; Z88.1 Allergy status to other antibiotic agents; Z79.899 Other long term (current) drug therapy; Z90.49 Acquired absence of other specified parts of digestive tract; Z98.890 Other specified postprocedural states

== ENCOUNTER → 2021-10-05 | Outpatient (CLI) | payer MEDICARE, BC ==
[2021-10-05 18:21] LABS: HEMATOCRIT 21.6 % (37.0-47.0); MEAN CELL VOLUME 106.9 fl (81.0-99.0); MEAN CORPUSCULAR HGB 33.7 pg (27.0-31.0); MEAN CORPUSCULAR HGB CONC 31.5 g/dl (33.0-37.0); MEAN PLATELET VOLUME 11.3 fl (9.6-12.3); NUCLEATED RED BLOOD CELL 0.4 % (0.0-0.0); PLATELET COUNT AUTOMATED 152 10*3/uL (130-400); RED BLOOD COUNT 2.02 10*6/uL (4.10-5.10); RED CELL DISTRI WIDTH 16.2 % (0-14.5); WHITE BLOOD COUNT 4.7 10*3/uL (4.8-10.8)
[2021-10-05 18:46] LABS: MANUAL DIFF REFLEX YES
[2021-10-05 19:01] LABS: POLYCHROMASIA SLIGHT; TOTAL CELLS COUNTED 100 #CELLS
[2021-10-05 19:02] LABS: OVALOCYTES FEW; PLATELET SUFFICIENCY NORMAL (NORMAL); STOMATOCYTE FEW; TARGET CELLS FEW
== END | disposition home or self-care (01) ==
LOC: LAB 17:50
PROVIDERS: ATTEND Surgery Surgical Oncology
DX: D64.9 Anemia, unspecified (principal)

== ENCOUNTER → 2021-10-18 | Outpatient (CLI) | payer MEDICARE, BC | END | disposition home or self-care (01) | LOC: LAB 17:21 | PROVIDERS: ATTEND Psychiatry & Neurology Neurology with Special Qualifications in Child Neurology | DX: D56.5 Hemoglobin E-beta thalassemia (principal) ==

== ENCOUNTER 2021-10-21 16:18 | Emergency (ER) | payer MEDICARE, BC ==
[2021-10-21] VITALS (12 sets, daily range): BP systolic 122–144; BP diastolic 35–60
[~2021-10-21] VITALS: Ht 162.5 cm; Wt 75.1 kg
[2021-10-21 17:13] LABS: MEAN CELL VOLUME 105.9 fl (81.0-99.0); MEAN CORPUSCULAR HGB 33.9 pg (27.0-31.0); MEAN PLATELET VOLUME 11.2 fl (9.6-12.3); NUCLEATED RED BLOOD CELL 0.8 % (0.0-0.0); PLATELET COUNT AUTOMATED 124 10*3/uL (130-400); RED BLOOD COUNT 1.86 10*6/uL (4.10-5.10); RED CELL DISTRI WIDTH 16.4 % (0-14.5); WHITE BLOOD COUNT 4.8 10*3/uL (4.8-10.8)
[2021-10-21 17:15] LABS: HEMATOCRIT 19.7 % (37.0-47.0); MANUAL DIFF REFLEX YES
[2021-10-21 17:39] LABS: BASOPHILS 2 % (0-1); STOMATOCYTE FEW; TOTAL CELLS COUNTED 100 #CELLS
[2021-10-21 17:40] LABS: POLYCHROMASIA SLIGHT
[2021-10-21 17:41] LABS: PLATELET SUFFICIENCY LOW (NORMAL)
[2021-10-21 17:52] LABS: CREATININE 2.45 mg/dL (0.55-1.02); POTASSIUM 3.4 mmol/L (3.5-5.1); TOTAL PROTEIN 6.2 gm/dL (6.4-8.2)
== END 2021-10-21 22:24 | disposition home or self-care (01) ==
LOC: ED 16:18
PROVIDERS: Nurse Practitioner Family
DX: R53.83 Other fatigue (principal); Z88.1 Allergy status to other antibiotic agents; Z79.899 Other long term (current) drug therapy; Z90.49 Acquired absence of other specified parts of digestive tract; Z98.890 Other specified postprocedural states

== ENCOUNTER → 2021-10-21 | Outpatient (CLI) | payer MEDICARE, BC | END | disposition home or self-care (01) | LOC: LAB 09:59 | PROVIDERS: ATTEND Internal Medicine Nephrology | DX: Z79.899 Other long term (current) drug therapy (principal); D64.9 Anemia, unspecified; D63.1 Anemia in chronic kidney disease ==

== ENCOUNTER 2021-12-24 21:14 | Emergency (ER) | payer MEDICARE, BC ==
[~2021-12-24] VITALS: Ht 165.1 cm; Wt 68.0 kg
[2021-12-25 00:20] LABS: BASO % 0.3 % (0.0-1.0); EOS # 0.6 10*3/uL (0.0-0.4); EOS % 8.6 % (1.0-4.0); HEMATOCRIT 24.8 % (37.0-47.0); LYMPH # 0.7 10*3/uL (1.3-4.4); LYMPH % 9.2 % (27.0-41.0); MEAN CELL VOLUME 97.6 fl (81.0-99.0); MEAN CORPUSCULAR HGB 30.7 pg (27.0-31.0); MEAN CORPUSCULAR HGB CONC 31.5 g/dl (33.0-37.0); MEAN PLATELET VOLUME 11.2 fl (9.6-12.3); MONO # 0.8 10*3/uL (0.1-1.0); MONO % 11.1 % (3.0-9.0); NEUT # 5.2 10*3/uL (2.3-7.9); NEUT % 70.5 % (47.0-73.0); PLATELET COUNT AUTOMATED 168 10*3/uL (130-400); RED BLOOD COUNT 2.54 10*6/uL (4.10-5.10); RED CELL DISTRI WIDTH 18.9 % (0-14.5); WHITE BLOOD COUNT 7.3 10*3/uL (4.8-10.8)
[2021-12-25 00:33] LABS: ACT PARTIAL THROMBO TIME 36.3 SECONDS (20.0-32.1); INTERNATIONAL NORM RATIO 1.1 (2.0-3.5)
[2021-12-25 00:54] LABS: CREATININE 3.2 mg/dL (0.55-1.02); TOTAL PROTEIN 6.2 gm/dL (6.4-8.2)
[2021-12-25 00:57] LABS: POTASSIUM 4.4 mmol/L (3.5-5.1)
[2021-12-25] MEDS ORDERED: CLINDAMYCIN HC300 MG PO (01:39)
== END 2021-12-25 02:19 | disposition home or self-care (01) ==
LOC: ED 21:14
PROVIDERS: Family Medicine
DX: L76.34 Postprocedural seroma of skin and subcutaneous tissue following other procedure (principal); Z94.4 Liver transplant status; Z88.1 Allergy status to other antibiotic agents; Z79.899 Other long term (current) drug therapy; Z90.49 Acquired absence of other specified parts of digestive tract; Z98.890 Other specified postprocedural states; Z85.028 Personal history of other malignant neoplasm of stomach; Y83.8 Other surgical procedures as the cause of abnormal reaction of the patient, or of later complication, without mention of misadventure at the time of the procedure

== ENCOUNTER → 2022-02-07 | Outpatient (CLI) | payer MEDICARE, BC ==
[~2022-02-07] MED LIST changes: +AMOXICILLIN875 MG PO; +CEFUROXIME AXE250 MG PO; +CLINDAMYCIN HC300 MG PO; +TRAZODONE50 MG PO; +ZYVOX600 MG PO
== END | disposition home or self-care (01) ==
LOC: WOUNDCARE 03:04
PROVIDERS: ATTEND Nurse Practitioner Family
DX: T81.89XA Other complications of procedures, not elsewhere classified, initial encounter (principal); S31.159D Open bite of abdominal wall, unspecified quadrant without penetration into peritoneal cavity, subsequent encounter; L98.492 Non-pressure chronic ulcer of skin of other sites with fat layer exposed; N18.6 End stage renal disease; J45.909 Unspecified asthma, uncomplicated; K74.60 Unspecified cirrhosis of liver; M19.90 Unspecified osteoarthritis, unspecified site; M10.9 Gout, unspecified; Z94.4 Liver transplant status; Z99.2 Dependence on renal dialysis; Z85.3 Personal history of malignant neoplasm of breast; X58.XXXD Exposure to other specified factors, subsequent encounter; Y92.238 Other place in hospital as the place of occurrence of the external cause; Y83.8 Other surgical procedures as the cause of abnormal reaction of the patient, or of later complication, without mention of misadventure at the time of the procedure

== ENCOUNTER → 2022-02-17 | Outpatient (CLI) | payer MEDICARE, BC | END | disposition home or self-care (01) | LOC: WOUNDCARE 03:57 | PROVIDERS: ATTEND Nurse Practitioner Family | DX: T81.89XD Other complications of procedures, not elsewhere classified, subsequent encounter (principal); L98.491 Non-pressure chronic ulcer of skin of other sites limited to breakdown of skin; S31.159D Open bite of abdominal wall, unspecified quadrant without penetration into peritoneal cavity, subsequent encounter; N18.6 End stage renal disease; J45.909 Unspecified asthma, uncomplicated; K74.60 Unspecified cirrhosis of liver; M19.90 Unspecified osteoarthritis, unspecified site; M10.9 Gout, unspecified; Z85.3 Personal history of malignant neoplasm of breast; Z99.2 Dependence on renal dialysis; X58.XXXD Exposure to other specified factors, subsequent encounter; Y83.8 Other surgical procedures as the cause of abnormal reaction of the patient, or of later complication, without mention of misadventure at the time of the procedure ==

== ENCOUNTER → 2022-02-18 | Outpatient (CLI) | payer MEDICARE, BC | LOC: WOUNDCARE 02-01 02:56 | PROVIDERS: ATTEND Nurse Practitioner Family | DX: Z53.21 Procedure and treatment not carried out due to patient leaving prior to being seen by health care provider (principal) ==

== ENCOUNTER → 2022-02-23 | Outpatient (CLI) | payer MEDICARE, BC | LOC: WOUNDCARE 06:05 | PROVIDERS: ATTEND Nurse Practitioner Family | DX: Z53.21 Procedure and treatment not carried out due to patient leaving prior to being seen by health care provider (principal) ==

== ENCOUNTER → 2022-03-03 | Outpatient (CLI) | payer MEDICARE, BC | END | disposition home or self-care (01) | LOC: WOUNDCARE 09:57 | PROVIDERS: ATTEND Nurse Practitioner Family | DX: T81.89XA Other complications of procedures, not elsewhere classified, initial encounter (principal); L98.492 Non-pressure chronic ulcer of skin of other sites with fat layer exposed; S31.159D Open bite of abdominal wall, unspecified quadrant without penetration into peritoneal cavity, subsequent encounter; J45.909 Unspecified asthma, uncomplicated; N18.6 End stage renal disease; M10.9 Gout, unspecified; M19.90 Unspecified osteoarthritis, unspecified site; K74.60 Unspecified cirrhosis of liver; Z85.3 Personal history of malignant neoplasm of breast; Z94.4 Liver transplant status; Z99.2 Dependence on renal dialysis; X58.XXXD Exposure to other specified factors, subsequent encounter; Y92.238 Other place in hospital as the place of occurrence of the external cause; Y83.8 Other surgical procedures as the cause of abnormal reaction of the patient, or of later complication, without mention of misadventure at the time of the procedure ==

== ENCOUNTER → 2022-03-17 | Outpatient (CLI) | payer MEDICARE, BC | END | disposition home or self-care (01) | LOC: WOUNDCARE 01:20 | PROVIDERS: ATTEND Nurse Practitioner Family | DX: T81.89XD Other complications of procedures, not elsewhere classified, subsequent encounter (principal); L98.492 Non-pressure chronic ulcer of skin of other sites with fat layer exposed; S21.1 Open wound of front wall of thorax without penetration into thoracic cavity; N18.6 End stage renal disease; K74.60 Unspecified cirrhosis of liver; J45.909 Unspecified asthma, uncomplicated; M10.9 Gout, unspecified; M19.90 Unspecified osteoarthritis, unspecified site; Z94.4 Liver transplant status; Z85.3 Personal history of malignant neoplasm of breast; Z99.2 Dependence on renal dialysis; X58.XXXD Exposure to other specified factors, subsequent encounter; Y83.8 Other surgical procedures as the cause of abnormal reaction of the patient, or of later complication, without mention of misadventure at the time of the procedure ==

== ENCOUNTER 2022-03-23 01:31 | Emergency (ER) | payer MEDICARE, BC ==
[~2022-03-23] VITALS: Ht 165.1 cm; Wt 69.4 kg
[2022-03-23 02:52] LABS: BASO % 0.5 % (0.0-1.0); EOS # 0.7 10*3/uL (0.0-0.4); HEMATOCRIT 28.6 % (37.0-47.0); LYMPH # 0.6 10*3/uL (1.3-4.4); LYMPH % 7.5 % (27.0-41.0); MEAN CELL VOLUME 99.3 fl (81.0-99.0); MEAN CORPUSCULAR HGB 31.9 pg (27.0-31.0); MEAN CORPUSCULAR HGB CONC 32.2 g/dl (33.0-37.0); MONO # 1.1 10*3/uL (0.1-1.0); MONO % 12.7 % (3.0-9.0); NEUT # 5.9 10*3/uL (2.3-7.9); NEUT % 70.9 % (47.0-73.0); PLATELET COUNT AUTOMATED 146 10*3/uL (130-400); RED BLOOD COUNT 2.88 10*6/uL (4.10-5.10); RED CELL DISTRI WIDTH 17.8 % (0-14.5); WHITE BLOOD COUNT 8.3 10*3/uL (4.8-10.8)
[2022-03-23 03:06] LABS: POTASSIUM 3.9 mmol/L (3.4-5.1); TOTAL PROTEIN 7.1 gm/dL (6.0-8.0)
[2022-03-23 04:09] LABS: BILIRUBIN Negative (Negative); BLOOD Negative (Negative); CLARITY Clear (Clear); COLOR Yellow (Yellow); GLUCOSE Negative (Negative); KETONE Negative (Negative); LEUKO ESTERASE 2+ (Negative); NITRITE Negative (Negative); UROBILINOGEN 0.2 E.U./dl (0.0-1.0)
[2022-03-23 04:16] LABS: BACTERIA 1+; EPITHELIAL CELLS 16-20; WBC 16-20 wbc/hpf (0-5)
== END 2022-03-23 04:43 | disposition home or self-care (01) ==
LOC: ED 01:31
PROVIDERS: Emergency Medicine
DX: K94.23 Gastrostomy malfunction (principal); N39.0 Urinary tract infection, site not specified; N18.4 Chronic kidney disease, stage 4 (severe); I50.9 Heart failure, unspecified; Z53.20 Procedure and treatment not carried out because of patient's decision for unspecified reasons; Z88.1 Allergy status to other antibiotic agents; Z79.899 Other long term (current) drug therapy; Z98.890 Other specified postprocedural states; Z90.49 Acquired absence of other specified parts of digestive tract

== ENCOUNTER → 2022-03-28 | Outpatient (CLI) | payer MEDICARE, BC | END | disposition home or self-care (01) | LOC: CT 02:11 | PROVIDERS: ATTEND Surgery | DX: S31.109D Unspecified open wound of abdominal wall, unspecified quadrant without penetration into peritoneal cavity, subsequent encounter (principal); J90 Pleural effusion, not elsewhere classified; K76.0 Fatty (change of) liver, not elsewhere classified; N26.1 Atrophy of kidney (terminal); E27.8 Other specified disorders of adrenal gland; J98.11 Atelectasis; M79.89 Other specified soft tissue disorders; I34.81 Nonrheumatic mitral (valve) annulus calcification; Z94.4 Liver transplant status; Z99.2 Dependence on renal dialysis; Z90.49 Acquired absence of other specified parts of digestive tract; Z93.4 Other artificial openings of gastrointestinal tract status; Z98.890 Other specified postprocedural states; X58.XXXD Exposure to other specified factors, subsequent encounter ==

== ENCOUNTER → 2022-04-25 | Outpatient (CLI) | payer MEDICARE, BC | END | disposition home or self-care (01) | LOC: WOUNDCARE 02:54 | PROVIDERS: ATTEND Nurse Practitioner Family | DX: T81.89XA Other complications of procedures, not elsewhere classified, initial encounter (principal); L98.492 Non-pressure chronic ulcer of skin of other sites with fat layer exposed; N18.6 End stage renal disease; K74.60 Unspecified cirrhosis of liver; M10.9 Gout, unspecified; M19.90 Unspecified osteoarthritis, unspecified site; J45.909 Unspecified asthma, uncomplicated; Z85.3 Personal history of malignant neoplasm of breast; Z99.2 Dependence on renal dialysis; Y92.238 Other place in hospital as the place of occurrence of the external cause; Y83.8 Other surgical procedures as the cause of abnormal reaction of the patient, or of later complication, without mention of misadventure at the time of the procedure ==

== ENCOUNTER → 2022-05-09 | Outpatient (CLI) | payer MEDICARE, BC | LOC: WOUNDCARE 01:17 | PROVIDERS: ATTEND Nurse Practitioner Family | DX: Z53.21 Procedure and treatment not carried out due to patient leaving prior to being seen by health care provider (principal) ==

== ENCOUNTER → 2022-05-18 | Outpatient (CLI) | payer MEDICARE, BC | END | disposition home or self-care (01) | LOC: NM 05-08 10:00 → CT 05-08 11:00 → LAB 00:36 → NM 10:00 → LAB 10:00 | PROVIDERS: ATTEND Internal Medicine Hematology & Oncology | DX: Z51.11 Encounter for antineoplastic chemotherapy (principal); Z45.2 Encounter for adjustment and management of vascular access device; N18.4 Chronic kidney disease, stage 4 (severe); D63.1 Anemia in chronic kidney disease; C50.912 Malignant neoplasm of unspecified site of left female breast; C51.1 Malignant neoplasm of labium minus; C16.9 Malignant neoplasm of stomach, unspecified; D69.6 Thrombocytopenia, unspecified; J90 Pleural effusion, not elsewhere classified; N26.1 Atrophy of kidney (terminal); E27.9 Disorder of adrenal gland, unspecified; N28.1 Cyst of kidney, acquired ==

== ENCOUNTER → 2022-05-25 | Outpatient (CLI) | payer MEDICARE, BC | END | disposition home or self-care (01) | LOC: WOUNDCARE 00:40 | PROVIDERS: ATTEND Nurse Practitioner Family | DX: T81.89XD Other complications of procedures, not elsewhere classified, subsequent encounter (principal); L98.492 Non-pressure chronic ulcer of skin of other sites with fat layer exposed; N18.6 End stage renal disease; J45.909 Unspecified asthma, uncomplicated; K74.60 Unspecified cirrhosis of liver; M19.90 Unspecified osteoarthritis, unspecified site; M10.9 Gout, unspecified; Z94.4 Liver transplant status; Z85.3 Personal history of malignant neoplasm of breast; Z99.2 Dependence on renal dialysis; Y83.8 Other surgical procedures as the cause of abnormal reaction of the patient, or of later complication, without mention of misadventure at the time of the procedure ==

== ENCOUNTER → 2022-06-15 | Outpatient (CLI) | payer MEDICARE, BC | END | disposition home or self-care (01) | LOC: WOUNDCARE 13:09 | PROVIDERS: ATTEND Nurse Practitioner Family | DX: T81.89XD Other complications of procedures, not elsewhere classified, subsequent encounter (principal); L98.492 Non-pressure chronic ulcer of skin of other sites with fat layer exposed; N18.6 End stage renal disease; J45.909 Unspecified asthma, uncomplicated; K74.60 Unspecified cirrhosis of liver; M19.90 Unspecified osteoarthritis, unspecified site; M10.9 Gout, unspecified; Z99.2 Dependence on renal dialysis; Z94.4 Liver transplant status; Z85.3 Personal history of malignant neoplasm of breast; Y83.8 Other surgical procedures as the cause of abnormal reaction of the patient, or of later complication, without mention of misadventure at the time of the procedure ==

== ENCOUNTER → 2022-06-21 | Outpatient (CLI) | payer MEDICARE, BC | END | disposition home or self-care (01) | LOC: WOUNDCARE 06-06 01:40 | PROVIDERS: ATTEND Nurse Practitioner Family | DX: T81.89XD Other complications of procedures, not elsewhere classified, subsequent encounter (principal); L98.492 Non-pressure chronic ulcer of skin of other sites with fat layer exposed; N18.6 End stage renal disease; J45.909 Unspecified asthma, uncomplicated; K74.60 Unspecified cirrhosis of liver; M19.90 Unspecified osteoarthritis, unspecified site; M10.9 Gout, unspecified; Z85.3 Personal history of malignant neoplasm of breast; Z94.4 Liver transplant status; Z99.2 Dependence on renal dialysis; Y83.8 Other surgical procedures as the cause of abnormal reaction of the patient, or of later complication, without mention of misadventure at the time of the procedure ==

== ENCOUNTER → 2022-06-30 | Outpatient (CLI) | payer MEDICARE, BC | END | disposition home or self-care (01) | LOC: WOUNDCARE 01:01 | PROVIDERS: ATTEND Nurse Practitioner Family | DX: T81.89XD Other complications of procedures, not elsewhere classified, subsequent encounter (principal); L98.492 Non-pressure chronic ulcer of skin of other sites with fat layer exposed; N18.6 End stage renal disease; J45.909 Unspecified asthma, uncomplicated; K74.60 Unspecified cirrhosis of liver; M19.90 Unspecified osteoarthritis, unspecified site; M81.0 Age-related osteoporosis without current pathological fracture; Z85.3 Personal history of malignant neoplasm of breast; Z94.4 Liver transplant status; Z99.2 Dependence on renal dialysis; Y83.8 Other surgical procedures as the cause of abnormal reaction of the patient, or of later complication, without mention of misadventure at the time of the procedure ==

== ENCOUNTER → 2022-07-11 | Outpatient (CLI) | payer MEDICARE, BC | END | disposition home or self-care (01) | LOC: WOUNDCARE 01:52 | PROVIDERS: ATTEND Nurse Practitioner Family | DX: T81.89XD Other complications of procedures, not elsewhere classified, subsequent encounter (principal); L98.492 Non-pressure chronic ulcer of skin of other sites with fat layer exposed; N18.6 End stage renal disease; J45.909 Unspecified asthma, uncomplicated; K74.60 Unspecified cirrhosis of liver; M19.90 Unspecified osteoarthritis, unspecified site; M10.9 Gout, unspecified; Z94.4 Liver transplant status; Z85.3 Personal history of malignant neoplasm of breast; Z99.2 Dependence on renal dialysis; Y83.8 Other surgical procedures as the cause of abnormal reaction of the patient, or of later complication, without mention of misadventure at the time of the procedure ==

== ENCOUNTER → 2022-07-18 | Outpatient (CLI) | payer MEDICARE, BC | END | disposition home or self-care (01) | LOC: WOUNDCARE 00:44 | PROVIDERS: ATTEND Nurse Practitioner Family | DX: T81.89XD Other complications of procedures, not elsewhere classified, subsequent encounter (principal); L98.492 Non-pressure chronic ulcer of skin of other sites with fat layer exposed; N18.6 End stage renal disease; K74.60 Unspecified cirrhosis of liver; J45.909 Unspecified asthma, uncomplicated; M19.90 Unspecified osteoarthritis, unspecified site; M10.9 Gout, unspecified; Z94.4 Liver transplant status; Z85.3 Personal history of malignant neoplasm of breast; Z99.2 Dependence on renal dialysis; Y83.8 Other surgical procedures as the cause of abnormal reaction of the patient, or of later complication, without mention of misadventure at the time of the procedure ==

== ENCOUNTER → 2022-08-03 | Outpatient (CLI) | payer MEDICARE, BC ==
[~2022-08-03] MED LIST changes: +AMMONIUM LACTA227 GM T; +BUSPAR5 MG PO; +CETIRIZINE HYDR10 MG PO; +OXYCODONE HCL5 MG PO; +TACROLIMUS0.5 M1 PO
== END | disposition home or self-care (01) ==
LOC: WOUNDCARE 02:48
PROVIDERS: ATTEND Nurse Practitioner Family
DX: T81.89XD Other complications of procedures, not elsewhere classified, subsequent encounter (principal); L98.492 Non-pressure chronic ulcer of skin of other sites with fat layer exposed; N18.6 End stage renal disease; K74.60 Unspecified cirrhosis of liver; J45.909 Unspecified asthma, uncomplicated; M19.90 Unspecified osteoarthritis, unspecified site; M10.9 Gout, unspecified; Z94.4 Liver transplant status; Z85.3 Personal history of malignant neoplasm of breast; Z99.2 Dependence on renal dialysis; Y83.8 Other surgical procedures as the cause of abnormal reaction of the patient, or of later complication, without mention of misadventure at the time of the procedure

== ENCOUNTER 2022-08-07 19:40 | Inpatient (IN) | payer MEDICARE, BC ==
[~2022-08-07] VITALS: Ht 165.1 cm; Wt 75.1 kg
[~2022-08-07 19:40] MED LIST changes: -AMMONIUM LACTA227 GM T; -BUSPAR5 MG PO; -CETIRIZINE HYDR10 MG PO; -OXYCODONE HCL5 MG PO; -TACROLIMUS0.5 M1 PO
[2022-08-07 19:50] VITALS: BP 164/52
[2022-08-07 20:40] LABS: POTASSIUM 3.4 mmol/L (3.4-5.1); TOTAL PROTEIN 6.6 gm/dL (6.0-8.0)
[2022-08-07 20:51] LABS: BASO % 0.5 % (0.0-1.0); EOS # 0.4 10*3/uL (0.0-0.4); EOS % 7.7 % (1.0-4.0); HEMATOCRIT 33.2 % (37.0-47.0); LYMPH # 0.6 10*3/uL (1.3-4.4); LYMPH % 10.4 % (27.0-41.0); MEAN CELL VOLUME 99.1 fl (81.0-99.0); MEAN CORPUSCULAR HGB 31.9 pg (27.0-31.0); MEAN CORPUSCULAR HGB CONC 32.2 g/dl (33.0-37.0); MEAN PLATELET VOLUME 11.6 fl (9.6-12.3); MONO # 0.7 10*3/uL (0.1-1.0); MONO % 11.4 % (3.0-9.0); NEUT % 69.6 % (47.0-73.0); PLATELET COUNT AUTOMATED 152 10*3/uL (130-400); RED BLOOD COUNT 3.35 10*6/uL (4.10-5.10); RED CELL DISTRI WIDTH 14.8 % (0-14.5); WHITE BLOOD COUNT 5.7 10*3/uL (4.8-10.8)
[2022-08-07 23:56] LABS: BILIRUBIN Negative (Negative); BLOOD 2+ (Negative); CLARITY Cloudy (Clear); COLOR Yellow (Yellow); GLUCOSE Negative (Negative); KETONE Negative (Negative); LEUKO ESTERASE 2+ (Negative); NITRITE Negative (Negative)
[2022-08-08 00:02] LABS: BACTERIA 2+; MUCOUS 1+; RBC 16-20 rbc/hpf (0-2); WBC 31-40 wbc/hpf (0-5)
[2022-08-08 00:03] LABS: YEAST 1+
[2022-08-08] MEDS ORDERED: PANTOPRAZOLE SO40 MG PO (01:19)
[2022-08-08] MEDS ORDERED: ALLOPURINOL100 MG PO (01:19)
[2022-08-08] MEDS ORDERED: TACROLIMUS0.5 M1 PO (01:20)
[2022-08-08] MEDS ORDERED: RENA-VITE1 TAB PO (01:20)
[2022-08-08] MEDS ORDERED: BUSPAR5 MG PO (01:21)
[2022-08-08] MEDS ORDERED: CETIRIZINE HYDR10 MG PO (01:22)
[2022-08-08] MEDS ORDERED: OXYCODONE HCL5 MG PO (01:23)
[2022-08-08 01:30] VITALS: BP 158/60
[2022-08-08] MEDS ORDERED: AMMONIUM LACTA227 GM T (01:55)
[2022-08-08 08:00] VITALS: BP 161/67
[2022-08-08 12:00] VITALS: BP 115/54
[2022-08-08 16:00] VITALS: BP 124/52
[2022-08-08 20:00] VITALS: BP 164/64
[2022-08-09] VITALS: BP 140/53
[2022-08-09 08:00] VITALS: BP 134/49
[2022-08-09 12:00] VITALS: BP 144/49
[2022-08-09 13:51] LABS: BASO % 0.4 % (0.0-1.0); EOS # 0.5 10*3/uL (0.0-0.4); EOS % 9.8 % (1.0-4.0); HEMATOCRIT 27.3 % (37.0-47.0); LYMPH # 0.6 10*3/uL (1.3-4.4); LYMPH % 12.3 % (27.0-41.0); MEAN CELL VOLUME 98.9 fl (81.0-99.0); MEAN CORPUSCULAR HGB 31.2 pg (27.0-31.0); MEAN CORPUSCULAR HGB CONC 31.5 g/dl (33.0-37.0); MONO # 0.7 10*3/uL (0.1-1.0); MONO % 13.8 % (3.0-9.0); NEUT % 63.5 % (47.0-73.0); PLATELET COUNT AUTOMATED 143 10*3/uL (130-400); RED BLOOD COUNT 2.76 10*6/uL (4.10-5.10); RED CELL DISTRI WIDTH 14.7 % (0-14.5); WHITE BLOOD COUNT 4.8 10*3/uL (4.8-10.8)
[2022-08-09 14:14] LABS: POTASSIUM 3.5 mmol/L (3.4-5.1)
[2022-08-09 16:00] VITALS: BP 142/48
[2022-08-10] VITALS: BP 151/48
[2022-08-10 06:26] LABS: BASO % 0.7 % (0.0-1.0); EOS # 0.5 10*3/uL (0.0-0.4); EOS % 11.5 % (1.0-4.0); HEMATOCRIT 24.9 % (37.0-47.0); LYMPH # 0.7 10*3/uL (1.3-4.4); LYMPH % 16.1 % (27.0-41.0); MEAN CELL VOLUME 99.2 fl (81.0-99.0); MEAN CORPUSCULAR HGB 31.5 pg (27.0-31.0); MEAN CORPUSCULAR HGB CONC 31.7 g/dl (33.0-37.0); MEAN PLATELET VOLUME 12.5 fl (9.6-12.3); MONO # 0.6 10*3/uL (0.1-1.0); MONO % 14.7 % (3.0-9.0); NEUT # 2.5 10*3/uL (2.3-7.9); NEUT % 56.8 % (47.0-73.0); PLATELET COUNT AUTOMATED 153 10*3/uL (130-400); POTASSIUM 3.5 mmol/L (3.4-5.1); RED BLOOD COUNT 2.51 10*6/uL (4.10-5.10); RED CELL DISTRI WIDTH 14.6 % (0-14.5); WHITE BLOOD COUNT 4.4 10*3/uL (4.8-10.8)
[2022-08-10 08:00] VITALS: BP 141/54
[2022-08-10] MEDS ORDERED: AMOX-CLAV 875-1 EACH PO (08:24)
== END 2022-08-10 10:20 | disposition home health service (06) | DRG 689 ==
LOC: ED 19:40 → EDHOLD 08-08 00:26 → 4E 08-08 00:26
PROVIDERS: Internal Medicine; Internal Medicine Nephrology; ADMIT Internal Medicine; ATTEND Internal Medicine
DX: N30.00 Acute cystitis without hematuria (principal); G93.41 Metabolic encephalopathy; N18.6 End stage renal disease; E44.0 Moderate protein-calorie malnutrition; Z94.4 Liver transplant status; I12.0 Hypertensive chronic kidney disease with stage 5 chronic kidney disease or end stage renal disease; S31.109A Unspecified open wound of abdominal wall, unspecified quadrant without penetration into peritoneal cavity, initial encounter; D53.9 Nutritional anemia, unspecified; G89.29 Other chronic pain; M54.50 Low back pain, unspecified; X58.XXXA Exposure to other specified factors, initial encounter; E11.22 Type 2 diabetes mellitus with diabetic chronic kidney disease; B96.20 Unspecified Escherichia coli [E. coli] as the cause of diseases classified elsewhere; B96.4 Proteus (mirabilis) (morganii) as the cause of diseases classified elsewhere; Z99.2 Dependence on renal dialysis; Z88.4 Allergy status to anesthetic agent; Y93.89 Activity, other specified; Y92.89 Other specified places as the place of occurrence of the external cause; Y99.8 Other external cause status; Z88.8 Allergy status to other drugs, medicaments and biological substances; Z90.49 Acquired absence of other specified parts of digestive tract; Z85.038 Personal history of other malignant neoplasm of large intestine; Z90.3 Acquired absence of stomach [part of]; Z86.14 Personal history of Methicillin resistant Staphylococcus aureus infection; Z68.27 Body mass index [BMI] 27.0-27.9, adult

== ENCOUNTER → 2022-08-15 | Outpatient (CLI) | payer MEDICARE, BC ==
[~2022-08-15] MED LIST changes: +AMMONIUM LACTA227 GM T; +AMOX-CLAV 875-1 EACH PO; +BUSPAR5 MG PO; +CETIRIZINE HYDR10 MG PO; +OXYCODONE HCL5 MG PO; +TACROLIMUS0.5 M1 PO
== END | disposition home or self-care (01) ==
LOC: WOUNDCARE 01:03
PROVIDERS: ATTEND Nurse Practitioner Primary Care
DX: T81.89XD Other complications of procedures, not elsewhere classified, subsequent encounter (principal); L89.626 Pressure-induced deep tissue damage of left heel; L89.616 Pressure-induced deep tissue damage of right heel; L98.492 Non-pressure chronic ulcer of skin of other sites with fat layer exposed; N18.6 End stage renal disease; J45.909 Unspecified asthma, uncomplicated; K74.60 Unspecified cirrhosis of liver; M19.90 Unspecified osteoarthritis, unspecified site; M10.9 Gout, unspecified; Z85.3 Personal history of malignant neoplasm of breast; Z94.4 Liver transplant status; Z99.2 Dependence on renal dialysis; Y83.8 Other surgical procedures as the cause of abnormal reaction of the patient, or of later complication, without mention of misadventure at the time of the procedure

== ENCOUNTER → 2022-08-29 | Outpatient (CLI) | payer MEDICARE, BC | END | disposition home or self-care (01) | LOC: WOUNDCARE 00:10 | PROVIDERS: ATTEND Nurse Practitioner Family | DX: T81.89XD Other complications of procedures, not elsewhere classified, subsequent encounter (principal); L89.616 Pressure-induced deep tissue damage of right heel; L98.492 Non-pressure chronic ulcer of skin of other sites with fat layer exposed; N18.6 End stage renal disease; J45.909 Unspecified asthma, uncomplicated; K74.60 Unspecified cirrhosis of liver; M19.90 Unspecified osteoarthritis, unspecified site; M10.9 Gout, unspecified; Z94.4 Liver transplant status; Z85.3 Personal history of malignant neoplasm of breast; Z99.2 Dependence on renal dialysis; Y83.8 Other surgical procedures as the cause of abnormal reaction of the patient, or of later complication, without mention of misadventure at the time of the procedure ==

== ENCOUNTER → 2022-11-21 | Outpatient (CLI) | payer MEDICARE, BC | END | disposition home or self-care (01) | LOC: WOUNDCARE 13:17 | PROVIDERS: ATTEND Nurse Practitioner Family | DX: T81.89XA Other complications of procedures, not elsewhere classified, initial encounter (principal); L98.491 Non-pressure chronic ulcer of skin of other sites limited to breakdown of skin; S31.102D Unspecified open wound of abdominal wall, epigastric region without penetration into peritoneal cavity, subsequent encounter; L30.9 Dermatitis, unspecified; N18.6 End stage renal disease; J45.909 Unspecified asthma, uncomplicated; M19.90 Unspecified osteoarthritis, unspecified site; M10.9 Gout, unspecified; K74.60 Unspecified cirrhosis of liver; Z94.4 Liver transplant status; Z85.3 Personal history of malignant neoplasm of breast; Z99.2 Dependence on renal dialysis; X58.XXXD Exposure to other specified factors, subsequent encounter; Y92.238 Other place in hospital as the place of occurrence of the external cause; Y83.8 Other surgical procedures as the cause of abnormal reaction of the patient, or of later complication, without mention of misadventure at the time of the procedure ==

== ENCOUNTER → 2022-11-29 | Outpatient (CLI) | payer MEDICARE, BC | END | disposition home or self-care (01) | LOC: WOUNDCARE 09-19 00:10 | PROVIDERS: ATTEND Nurse Practitioner Family | DX: T81.89XD Other complications of procedures, not elsewhere classified, subsequent encounter (principal); L98.492 Non-pressure chronic ulcer of skin of other sites with fat layer exposed; L30.9 Dermatitis, unspecified; S31.102D Unspecified open wound of abdominal wall, epigastric region without penetration into peritoneal cavity, subsequent encounter; N18.6 End stage renal disease; J45.909 Unspecified asthma, uncomplicated; K74.60 Unspecified cirrhosis of liver; M10.9 Gout, unspecified; M19.90 Unspecified osteoarthritis, unspecified site; Z94.4 Liver transplant status; Z99.2 Dependence on renal dialysis; X58.XXXD Exposure to other specified factors, subsequent encounter; Y83.8 Other surgical procedures as the cause of abnormal reaction of the patient, or of later complication, without mention of misadventure at the time of the procedure ==

== ENCOUNTER → 2023-06-05 | Outpatient (CLI) | payer MEDICARE, BC ==
[~2023-06-05] MED LIST changes: +AMLODIPINE BES2.5 MG PO; +CALCIUM ACETAT667 M2 PO; +CEFDINIR300 MG PO; +COLACE100 MG PO; +KLOR-CON 1010 ME1 PO; +LIPO-FLAVONOID1 EACH PO; +LOPRESSOR25 MG PO; +METHOCARBAMOL750 M1 PO; +MIDODRINE HCL2.5 MG PO; +PROCHLORPERAZIN10 MG PO; +SINGULAIR10 M1 PO; +TYLENOL325 M1 PO
== END | disposition home or self-care (01) ==
LOC: WOUNDCARE 03:06
PROVIDERS: ATTEND Nurse Practitioner Family
DX: T81.89XA Other complications of procedures, not elsewhere classified, initial encounter (principal); S31.102A Unspecified open wound of abdominal wall, epigastric region without penetration into peritoneal cavity, initial encounter; L98.491 Non-pressure chronic ulcer of skin of other sites limited to breakdown of skin; J45.909 Unspecified asthma, uncomplicated; N18.6 End stage renal disease; M10.9 Gout, unspecified; M19.90 Unspecified osteoarthritis, unspecified site; K74.60 Unspecified cirrhosis of liver; L30.9 Dermatitis, unspecified; Z90.49 Acquired absence of other specified parts of digestive tract; Z92.21 Personal history of antineoplastic chemotherapy; Z92.3 Personal history of irradiation; Z85.3 Personal history of malignant neoplasm of breast; Z85.028 Personal history of other malignant neoplasm of stomach; Z99.2 Dependence on renal dialysis; Z79.899 Other long term (current) drug therapy; X58.XXXA Exposure to other specified factors, initial encounter; Y92.89 Other specified places as the place of occurrence of the external cause; Y93.89 Activity, other specified; Y99.8 Other external cause status; Y83.8 Other surgical procedures as the cause of abnormal reaction of the patient, or of later complication, without mention of misadventure at the time of the procedure

== ENCOUNTER → 2023-06-12 | Outpatient (CLI) | payer MEDICARE, BC | END | disposition home or self-care (01) | LOC: WOUNDCARE 00:40 | PROVIDERS: ATTEND Nurse Practitioner Family | DX: T81.89XD Other complications of procedures, not elsewhere classified, subsequent encounter (principal); S31.102D Unspecified open wound of abdominal wall, epigastric region without penetration into peritoneal cavity, subsequent encounter; L98.492 Non-pressure chronic ulcer of skin of other sites with fat layer exposed; J45.909 Unspecified asthma, uncomplicated; N18.6 End stage renal disease; M10.9 Gout, unspecified; M19.90 Unspecified osteoarthritis, unspecified site; K74.60 Unspecified cirrhosis of liver; L30.9 Dermatitis, unspecified; Z90.49 Acquired absence of other specified parts of digestive tract; Z92.21 Personal history of antineoplastic chemotherapy; Z92.3 Personal history of irradiation; Z85.3 Personal history of malignant neoplasm of breast; Z85.028 Personal history of other malignant neoplasm of stomach; Z99.2 Dependence on renal dialysis; Z79.899 Other long term (current) drug therapy; X58.XXXD Exposure to other specified factors, subsequent encounter; Y83.8 Other surgical procedures as the cause of abnormal reaction of the patient, or of later complication, without mention of misadventure at the time of the procedure ==

== ENCOUNTER → 2023-06-15 | Outpatient (CLI) | payer MEDICARE, BC | END | disposition home or self-care (01) | LOC: CT 10:00 | PROVIDERS: ATTEND Nurse Practitioner | DX: Z51.11 Encounter for antineoplastic chemotherapy (principal); Z45.2 Encounter for adjustment and management of vascular access device; J90 Pleural effusion, not elsewhere classified; N18.4 Chronic kidney disease, stage 4 (severe); D69.6 Thrombocytopenia, unspecified; R11.2 Nausea with vomiting, unspecified; D64.9 Anemia, unspecified; C50.912 Malignant neoplasm of unspecified site of left female breast; I51.7 Cardiomegaly ==

== ENCOUNTER → 2023-06-26 | Outpatient (CLI) | payer MEDICARE, BC | END | disposition home or self-care (01) | LOC: WOUNDCARE 00:34 | PROVIDERS: ATTEND Nurse Practitioner Family | DX: T81.89XD Other complications of procedures, not elsewhere classified, subsequent encounter (principal); S31.102D Unspecified open wound of abdominal wall, epigastric region without penetration into peritoneal cavity, subsequent encounter; L98.492 Non-pressure chronic ulcer of skin of other sites with fat layer exposed; J45.909 Unspecified asthma, uncomplicated; N18.6 End stage renal disease; M10.9 Gout, unspecified; M19.90 Unspecified osteoarthritis, unspecified site; K74.60 Unspecified cirrhosis of liver; L30.9 Dermatitis, unspecified; Z90.49 Acquired absence of other specified parts of digestive tract; Z92.3 Personal history of irradiation; Z92.21 Personal history of antineoplastic chemotherapy; Z85.3 Personal history of malignant neoplasm of breast; Z85.028 Personal history of other malignant neoplasm of stomach; Z99.2 Dependence on renal dialysis; Z79.899 Other long term (current) drug therapy; X58.XXXD Exposure to other specified factors, subsequent encounter; Y83.8 Other surgical procedures as the cause of abnormal reaction of the patient, or of later complication, without mention of misadventure at the time of the procedure ==

== ENCOUNTER → 2023-07-10 | Outpatient (CLI) | payer MEDICARE, BC | END | disposition home or self-care (01) | LOC: WOUNDCARE 00:59 | PROVIDERS: ATTEND Nurse Practitioner Family | DX: T81.89XD Other complications of procedures, not elsewhere classified, subsequent encounter (principal); S31.102D Unspecified open wound of abdominal wall, epigastric region without penetration into peritoneal cavity, subsequent encounter; L98.492 Non-pressure chronic ulcer of skin of other sites with fat layer exposed; J45.909 Unspecified asthma, uncomplicated; N18.6 End stage renal disease; M10.9 Gout, unspecified; M19.90 Unspecified osteoarthritis, unspecified site; K74.60 Unspecified cirrhosis of liver; L30.9 Dermatitis, unspecified; Z90.49 Acquired absence of other specified parts of digestive tract; Z92.3 Personal history of irradiation; Z92.21 Personal history of antineoplastic chemotherapy; Z99.2 Dependence on renal dialysis; Z85.3 Personal history of malignant neoplasm of breast; Z85.028 Personal history of other malignant neoplasm of stomach; Z79.899 Other long term (current) drug therapy; X58.XXXD Exposure to other specified factors, subsequent encounter; Y83.8 Other surgical procedures as the cause of abnormal reaction of the patient, or of later complication, without mention of misadventure at the time of the procedure ==

== ENCOUNTER 2023-07-11 09:54 | Emergency (ER) | payer MEDICARE, BC ==
[~2023-07-11] VITALS: Ht 165.1 cm; Wt 60.8 kg
[2023-07-11] MEDS ORDERED: Vancomycin Hydrochloride 250 ML IV ONE (12:05)
== END 2023-07-11 13:54 | disposition left against medical advice (07) ==
LOC: ED 09:54
DX: B95.62 Methicillin resistant Staphylococcus aureus infection as the cause of diseases classified elsewhere (principal); J45.909 Unspecified asthma, uncomplicated; I25.2 Old myocardial infarction; E11.22 Type 2 diabetes mellitus with diabetic chronic kidney disease; N18.6 End stage renal disease; I50.33 Acute on chronic diastolic (congestive) heart failure; Z45.1 Encounter for adjustment and management of infusion pump; Z53.29 Procedure and treatment not carried out because of patient's decision for other reasons; Z88.1 Allergy status to other antibiotic agents; Z79.899 Other long term (current) drug therapy; Z94.4 Liver transplant status; Z90.49 Acquired absence of other specified parts of digestive tract; Z98.890 Other specified postprocedural states; Z90.711 Acquired absence of uterus with remaining cervical stump

== ENCOUNTER 2023-11-16 16:57 | Inpatient (IN) | payer MEDICARE, BC ==
[~2023-11-16] VITALS: Ht 165 cm; Wt 62.7 kg
[2023-11-16 17:09] VITALS: BP 148/81
[2023-11-16] MEDS ORDERED: LORazepam 1 MG TAB PO ONE (17:20)
[2023-11-16 17:37] LABS: HEMATOCRIT 31.4 % (37.0-47.0); MEAN CELL VOLUME 110.2 fl (81.0-99.0); MEAN CORPUSCULAR HGB 33.3 pg (27.0-31.0); MEAN CORPUSCULAR HGB CONC 30.3 g/dl (33.0-37.0); MEAN PLATELET VOLUME 12.4 fl (9.6-12.3); PLATELET COUNT AUTOMATED 73 10*3/uL (130-400); RED BLOOD COUNT 2.85 10*6/uL (4.10-5.10); RED CELL DISTRI WIDTH 16.5 % (0-14.5); WHITE BLOOD COUNT 7.6 10*3/uL (4.8-10.8)
[2023-11-16 17:38] LABS: MANUAL DIFF REFLEX YES
[2023-11-16 17:52] LABS: POTASSIUM 3.4 mmol/L (3.4-5.1)
[2023-11-16 18:02] LABS: BASOPHILS 1 % (0-1); TOTAL CELLS COUNTED 100 #CELLS
[2023-11-16 18:03] LABS: OVALOCYTES FEW; PLATELET SUFFICIENCY LOW (NORMAL); POLYCHROMASIA SLIGHT; TARGET CELLS FEW
[2023-11-16] MEDS ORDERED: Piperacillin Sodium/Tazobact 50 ML IV ONE (18:15)
[2023-11-16] MEDS ORDERED: Vancomycin Hydrochloride 250 ML IV ONE (18:15)
[2023-11-16] MEDS ORDERED: SODIUM CHLORIDE 0.9% 250 ML IV ONE (18:20)
[2023-11-16 20:21] VITALS: BP 171/86
[2023-11-16] MEDS ORDERED: POTASSIUM CHLO20 MEQ PO (20:59)
[2023-11-16] MEDS ORDERED: MEGACE40 MG PO (20:59)
[2023-11-16] MEDS ORDERED: FUROSEMIDE40 MG PO (21:00)
[2023-11-16] MEDS ORDERED: ADVAIR HFA 230-12 GM INH (21:03)
[2023-11-17 00:40] VITALS: BP 144/83
[2023-11-17 06:06] VITALS: BP 146/53
[2023-11-17 08:15] VITALS: BP 169/52
[2023-11-17] MEDS ORDERED: ALBUTEROL 8 GM INHALER INH PRN (09:15)
[2023-11-17] MEDS ORDERED: OXYCODONE HCL (IR) 5 MG TAB PO PRN (09:20)
[2023-11-17] MEDS ORDERED: Albuterol Sulfate 2.5 MG/3 ML VIAL NEB PRN (09:35)
[2023-11-17] MEDS ORDERED: CALCITRIOL 0.25 MCG CAP PO SCH (10:00)
[2023-11-17] MEDS ORDERED: Pantoprazole Sodium 40 MG TAB PO SCH (10:00)
[2023-11-17] MEDS ORDERED: Tacrolimus 0.5 MG CAP PO SCH (10:00)
[2023-11-17] MEDS ORDERED: DOCUSATE SODIUM 100 MG CAP PO SCH (10:00)
[2023-11-17] MEDS ORDERED: Vitamin B Complex and Vitami4 1 TAB TAB PO SCH (10:00)
[2023-11-17] MEDS ORDERED: ALLOPURINOL 100 MG TAB PO SCH (10:00)
[2023-11-17] MEDS ORDERED: POTASSIUM CHLORIDE 20 MEQ TAB PO SCH (10:00)
[2023-11-17] MEDS ORDERED: Dicyclomine Hydrochloride 10 MG CAP PO SCH (10:00)
[2023-11-17] MEDS ORDERED: amLODIPine besylate 2.5 MG TAB PO SCH (10:00)
[2023-11-17] MEDS ORDERED: MEGESTROL ACETATE 40 MG TAB PO SCH (10:00)
[2023-11-17] MEDS ORDERED: FUROSEMIDE 40 MG TAB PO SCH (10:00)
[2023-11-17] MEDS ORDERED: CALCIUM ACETATE 667 MG CAP PO SCH (12:00)
[2023-11-17 13:18] VITALS: BP 157/61
[2023-11-17 21:31] VITALS: BP 171/61
[2023-11-17 21:40] VITALS: BP 171/61
[2023-11-18] VITALS: BP 150/62
[2023-11-18 08:00] VITALS: BP 168/61
[2023-11-18 12:00] VITALS: BP 170/51
[2023-11-18 16:00] VITALS: BP 153/70
[2023-11-18] MEDS ORDERED: Ceftriaxone Sodium 2 GM in SYRINGE INFUSION 20 ML IV SCH (17:00)
[2023-11-18 20:00] VITALS: BP 179/73
[2023-11-18] MEDS ORDERED: Doxycycline Hyclate 100 MG CAP PO SCH (22:00)
[2023-11-19 00:08] VITALS: BP 168/57
[2023-11-19 08:00] VITALS: BP 145/57
[2023-11-19 12:00] VITALS: BP 160/80
== END 2023-11-19 14:30 | disposition home or self-care (01) | DRG 689 ==
LOC: ED 16:57 → 4E 18:18 → EDHOLD 18:18 → 4E 11-17 13:10 → EDHOLD 11-17 18:20 → 4E 11-17 20:20
PROVIDERS: Emergency Medicine; ADMIT Internal Medicine; ATTEND Internal Medicine
DX: N39.0 Urinary tract infection, site not specified (principal); J18.9 Pneumonia, unspecified organism; N18.6 End stage renal disease; E87.20 Acidosis, unspecified; I13.2 Hypertensive heart and chronic kidney disease with heart failure and with stage 5 chronic kidney disease, or end stage renal disease; I50.32 Chronic diastolic (congestive) heart failure; R62.7 Adult failure to thrive; E11.22 Type 2 diabetes mellitus with diabetic chronic kidney disease; Z83.3 Family history of diabetes mellitus; Z88.8 Allergy status to other drugs, medicaments and biological substances; Z82.49 Family history of ischemic heart disease and other diseases of the circulatory system; Z68.23 Body mass index [BMI] 23.0-23.9, adult

== ENCOUNTER → 2024-02-01 | Outpatient (CLI) | payer MEDICARE, BC ==
[~2024-02-01] MED LIST changes: +ADVAIR HFA 230-12 GM INH; +FUROSEMIDE40 MG PO; +MEGACE40 MG PO; +POTASSIUM CHLO20 MEQ PO
== END ==
LOC: WOUNDCARE 10:30
PROVIDERS: ATTEND Nurse Practitioner Family
DX: T81.89XA Other complications of procedures, not elsewhere classified, initial encounter (principal); S31.102D Unspecified open wound of abdominal wall, epigastric region without penetration into peritoneal cavity, subsequent encounter; L98.492 Non-pressure chronic ulcer of skin of other sites with fat layer exposed; J45.909 Unspecified asthma, uncomplicated; N18.6 End stage renal disease; M10.9 Gout, unspecified; M19.90 Unspecified osteoarthritis, unspecified site; K74.60 Unspecified cirrhosis of liver; L30.9 Dermatitis, unspecified; Z90.49 Acquired absence of other specified parts of digestive tract; Z92.3 Personal history of irradiation; Z92.21 Personal history of antineoplastic chemotherapy; Z99.2 Dependence on renal dialysis; Z85.3 Personal history of malignant neoplasm of breast; Z85.028 Personal history of other malignant neoplasm of stomach; Z79.899 Other long term (current) drug therapy; X58.XXXD Exposure to other specified factors, subsequent encounter; Y83.8 Other surgical procedures as the cause of abnormal reaction of the patient, or of later complication, without mention of misadventure at the time of the procedure; Y92.89 Other specified places as the place of occurrence of the external cause

== ENCOUNTER → 2024-02-07 | Outpatient (CLI) | payer MEDICARE, BC | END | disposition home or self-care (01) | LOC: WOUNDCARE 03:08 | PROVIDERS: ATTEND Nurse Practitioner Family | DX: T81.89XD Other complications of procedures, not elsewhere classified, subsequent encounter (principal); S31.102D Unspecified open wound of abdominal wall, epigastric region without penetration into peritoneal cavity, subsequent encounter; L30.9 Dermatitis, unspecified; J45.909 Unspecified asthma, uncomplicated; K74.60 Unspecified cirrhosis of liver; N18.6 End stage renal disease; M19.90 Unspecified osteoarthritis, unspecified site; M10.9 Gout, unspecified; Z85.3 Personal history of malignant neoplasm of breast; Z99.2 Dependence on renal dialysis; Z85.028 Personal history of other malignant neoplasm of stomach; Z79.899 Other long term (current) drug therapy; X58.XXXD Exposure to other specified factors, subsequent encounter; Y83.8 Other surgical procedures as the cause of abnormal reaction of the patient, or of later complication, without mention of misadventure at the time of the procedure ==

== ENCOUNTER → 2024-05-08 | Outpatient (CLI) | payer MEDICARE, BC | END | disposition home or self-care (01) | LOC: US 13:25 | PROVIDERS: ATTEND Internal Medicine | DX: M79.602 Pain in left arm (principal); R22.32 Localized swelling, mass and lump, left upper limb ==